=== PATIENT | male | born 1960 | race Caucasian/White ===

== ENCOUNTER → 2017-06-26 | Outpatient (CLI) | payer OTHER ==
--- NOTE | 2017-06-26 13:16 | US ---
EXAMINATION TYPE: US venous doppler duplex LE DATE OF EXAM: 06/26/2017 12:29 PM COMPARISON: US 01/20/2014 CLINICAL HISTORY: M79.605 Pain in left leg M79.604 pain right leg. Difficult exam due to patient body habitus SIDE PERFORMED: Bilateral TECHNIQUE: The lower extremity deep venous system is examined utilizing real time linear array sonog christina with graded compression, doppler sonography and color-flow sonography. VESSELS IMAGED: External Iliac Vein (EIV) Common Femoral Vein Deep Femoral Vein Greater Saphenous Vein * Femoral Vein Popliteal Vein Small Saphenous Vein * Proximal Calf Veins (* superficial vessels) Grayscale, color doppler, spectral doppler imaging performed of the deep veins of the lower extremiti es. There is normal flow, compressibility, vascular waveforms. IMPRESSION: Right Leg: Negative for DVT Left Leg: Negative for DVT
== END | disposition home or self-care (01) ==
LOC: RADUSWWP 11:49
PROVIDERS: ATTEND Family Medicine
DX: M79.605 Pain in left leg (principal); M79.604 Pain in right leg; R22.41 Localized swelling, mass and lump, right lower limb; R22.42 Localized swelling, mass and lump, left lower limb
CPT/HCPCS: 93970

== ENCOUNTER 2018-11-12 15:51 | Emergency (ER) | payer OTHER ==
[2018-11-12 15:57] VITALS: TEMP 98.5
--- NOTE | 2018-11-12 16:31 | ED ---
Wound/Laceration HPI - General Chief Complaint: Wound/Laceration Stated Complaint: Leg infection Time Seen by Provider: 11/12/18 16:02 Source: patient, RN notes reviewed, old records reviewed Mode of arrival: ambulatory Limitations: no limitations - History of Present Illness Initial Comments: Patient's a 58-year-old male presents emergency department today for chief complaint of a wound over his left lower extremity. Patient reports that 3 weeks ago he tripped and hit his lower leg into a metal step. He reports he has a laceration at that time. Patient reports that since that time has been cleaning it with peroxide and putting Neosporin but the area of redness and swelling worsen. He states he went to see his PCP today who sent him here for further evaluation and requested the Patient didn't have a blood clot ruled out. Patient states that he does have some redness around the leg. Patient reports the pain has been more severe with ambulation. Patient reports he was receiving an updated tetanus at his PCPs office today and they did do an x-ray which showed no foreign body. - Related Data Home Medications Medication Instructions Recorded Confirmed Acetaminophen [Tylenol Extra 1,000 mg PO Q6H PRN 11/12/18 11/12/18 Strength] Previous Rx's Medication Instructions Recorded Acetaminophen-Codeine 300-30mg 1 tab PO Q6H PRN 3 Days #12 tablet 11/12/18 [Tylenol w/codeine #3] Cephalexin [Keflex] 500 mg PO Q6HR #40 cap 11/12/18 Sulfamethox-Tmp 800-160Mg [Bactrim 2 tab PO Q12HR #40 tab 11/12/18 DS 800-160 mg] Allergies Allergy/AdvReac Type Severity Reaction Status Date / Time No Known Allergies Allergy Verified 11/12/18 16:14 Review of Systems ROS Statement: Those systems with pertinent positive or pertinent negative responses have been documented in the HPI. ROS Other: All systems not noted in ROS Statement are negative. Past Medical History Past Medical History: Hypertension Additional Past Medical History / Comment(s): OBESITY; "FLUID AROUND HEART" History of Any Multi-Drug Resistant Organisms: None Reported Past Surgical History: Orthopedic Surgery Additional Past Surgical History / Comment(s): lt hand Past Psychological History: No Psychological Hx Reported Smoking Status: Former smoker Past Alcohol Use History: None Reported Past Drug Use History: None Reported General Exam - General Exam Comments Initial Comments: 58-year-old male. Alert and oriented 3. Patient appears in no significant distress. Limitations: no limitations General appearance: alert, in no apparent distress Head exam: Present: atraumatic Eye exam: Present: normal appearance, PERRL, EOMI. Absent: scleral icterus, conjunctival injection, periorbital swelling ENT exam: Present: normal exam, mucous membranes moist Neck exam: Present: normal inspection. Absent: tenderness, meningismus, ly mphadenopathy Respiratory exam: Present: normal lung sounds bilaterally Cardiovascular Exam: Present: regular rate, normal rhythm, normal heart sounds. Absent: systolic murmur, diastolic murmur, rubs, gallop, clicks GI/Abdominal exam: Present: soft, normal bowel sounds. Absent: distended, tenderness, guarding, rebound, rigid Extremities exam: Present: normal inspection, full ROM, normal capillary refill, other (Patient has a puncture wound over the left lower calf with this rounding erythema. Puncture wound measures 2 cm x 1 cm deep. There is evidence of purulent drainage.). Absent: tenderness, pedal edema, joint swelling, calf tenderness Back exam: Present: normal inspection Neurological exam: Present: alert, oriented X3, CN II-XII intact Psychiatric exam: Present: normal affect, normal mood Skin exam: Present: warm, dry, intact, normal color. Absent: rash Course Vital Signs 11/12/18 11/12/18 15:53 18:37 Temperature 98.5 F Pulse Rate 90 61 Respiratory 18 20 Rate Blood Pressure 156/78 134/74 O2 Sat by Pulse 99 99 Oximetry Medical Decision Making - Medical Decision Making 50-year-old male presents to return today after being evaluated by his primary care doctor for a infected laceration over his lower leg. He reports he fell 3 weeks ago, does have an area of laceration and wound measuring 2 cm long by 1 mm deep. This is over the anterior left castillo. No stranding erythema. Patient has no fever this time. Patient started on IV fluids and blood work obtained. No leukocytosis. He has not been on antibiotics as of this time. We'll culture was completed. Ultrasound is negative for DVT and x-ray shows evidence of soft tissue deformity. Patient has no retained foreign body. He was already given updated T dad. At this time Patient will be started on IV, discussed risk and benefit of inpatient treatment versus outpatient. Patient also to outpatient treatment. Discussed that we'll put the Patient on Keflex and Bactrim. Awaiting wound culture. Patient has been advised on wound care instructions. All questions answered return parameters were discussed. - Lab Data Result diagrams: 11/12/18 16:42 11/12/18 16:42 Lab Results 11/12/18 11/12/18 Range/Units 16:42 16:42 WBC 10.5 (3.8-10.6) k/uL RBC 4.53 (4.30-5.90) m/uL Hgb 14.5 (13.0-17.5) gm/dL Hct 43.7 (39.0-53.0) % MCV 96.5 (80.0-100.0) fL MCH 32.0 (25.0-35.0) pg MCHC 33.2 (31.0-37.0) g/dL RDW 14.7 (11.5-15.5) % Plt Count 328 (150-450) k/uL Neutrophils % 74 % Lymphocytes % 16 % Monocytes % 6 % Eosinophils % 2 % Basophils % 1 % Neutrophils # 7.7 (1.3-7.7) k/uL Lymphocytes # 1.7 (1.0-4.8) k/uL Monocytes # 0.6 (0-1.0) k/uL Eosinophils # 0.2 (0-0.7) k/uL Basophils # 0.1 (0-0.2) k/uL Sodium 141 (137-145) mmol/L Potassium 4.5 (3.5-5.1) mmol/L Chloride 106 (98-107) mmol/L Carbon Dioxide 25 (22-30) mmol/L Anion Gap 10 mmol/L BUN 16 (9-20) mg/dL Creatinine 0.86 (0.66-1.25) mg/dL Est GFR (CKD-EPI)AfAm >90 (>60 ml/min/1.73 sqM) Est GFR (CKD-EPI)NonAf >90 (>60 ml/min/1.73 sqM) Glucose 100 H (74-99) mg/dL Calcium 8.9 (8.4-10.2) mg/dL Total Bilirubin 0.4 (0.2-1.3) mg/dL AST 31 (17-59) U/L ALT 38 (21-72) U/L Alkaline Phosphatase 76 (38-126) U/L Total Protein 7.2 (6.3-8.2) g/dL Albumin 4.2 (3.5-5.0) g/dL - Radiology Data Radiology results: report reviewed Tib-fib x-ray: Anterior continuous and subcutaneous defect. Disposition Clinical Impression: Left leg cellulitis, Non-healing wound Disposition: HOME SELF-CARE Condition: Good Instructions (If sedation given, give patient instructions): Wound Infection (ED) Additional Instructions: Patient advised to have follow-up with your primary care physician. Take antibiotics as prescribed. If there is continued redness and swelling within the next 8 hours Patient may need to return for IV antibiotics. Patient should keep the leg up and elevated. No further peroxide on the wound and only dress it with antibiotic ointment. Prescriptions: Sulfamethox-Tmp 800-160Mg [Bactrim DS 800-160 mg] 2 tab PO Q12HR #40 tab Cephalexin [Keflex] 500 mg PO Q6HR #40 cap Acetaminophen-Codeine 300-30mg [Tylenol w/codeine #3] 1 tab PO Q6H PRN 3 Days #12 tablet PRN Reason: Pain Is patient prescribed a controlled substance at d/c from ED?: Yes If prescribed controlled substance>3 days was MAPS reviewed?: Prescribed <3 Days If opioid is for acute pain is fill amount 7 days or less?: Yes If Rx opioid, was Start Talking consent form obtained?: Yes Referrals: Selene Schmitt MD [Primary Care Provider] - 1-2 days Time of Disposition: 18:52
[2018-11-12 16:59] LABS: Basophils # (A) 0.1 k/uL (0-0.2); Basophils % (A) 1 %; Eosinophils # (A) 0.2 k/uL (0-0.7); Eosinophils % (A) 2 %; HCT 43.7 % (39.0-53.0); HGB 14.5 gm/dL (13.0-17.5); Lymphocytes # (A) 1.7 k/uL (1.0-4.8); Lymphocytes % (A) 16 %; MCHC 33.2 g/dL (31.0-37.0); MCV 96.5 fL (80.0-100.0); Monocytes # (A) 0.6 k/uL (0-1.0); Monocytes % (A) 6 %; Neutrophils # (A) 7.7 k/uL (1.3-7.7); Neutrophils % (A) 74 %; Platelet Count 328 k/uL (150-450); RBC 4.53 m/uL (4.30-5.90); RDW 14.7 % (11.5-15.5); WBC 10.5 k/uL (3.8-10.6)
[2018-11-12 17:16] LABS: ALT 38 U/L (21-72); AST 31 U/L (17-59); African American GFR (CKD) >90 (>60 ml/min/1.73 sqM); Albumin 4.2 g/dL (3.5-5.0); Alkaline Phosphatase 76 U/L (38-126); Anion Gap 10 mmol/L; Blood Urea Nitrogen 16 mg/dL (9-20); Calcium 8.9 mg/dL (8.4-10.2); Carbon Dioxide 25 mmol/L (22-30); Chloride 106 mmol/L (98-107); Glucose 100 mg/dL (74-99); Potassium 4.5 mmol/L (3.5-5.1); Sodium 141 mmol/L (137-145); Total Bilirubin 0.4 mg/dL (0.2-1.3); Total Protein 7.2 g/dL (6.3-8.2)
--- NOTE | 2018-11-12 17:22 | XR ---
PROCEDURE: XR tibia fibula LT - 4V DATE AND TIME: 11/12/2018 5:01 PM CLINICAL INDICATION: PHH; puncture wound TECHNIQUE: AP and crosstable lateral views from the knee to the ankle. COMPARISON: 01/20/2014 FINDINGS: Bones and joints are negative. Anterior to the tibia, just inferior to the mid-tibial level, there is a 2 cm scalloped cutaneous/sub cutaneaous defect. Soft tissues are otherwise radiographically unremarkable. IMPRESSION: Anterior cutaneous/subcutaneous defect.
--- NOTE | 2018-11-12 18:21 | US ---
EXAMINATION TYPE: US venous doppler duplex LE LT DATE OF EXAM: 11/12/2018 5:32 PM COMPARISON: NONE CLINICAL HISTORY: Swelling. Edema. SIDE PERFORMED: Left TECHNIQUE: The lower extremity deep venous system is examined utilizing real time linear array sonog christina with graded compression, doppler sonography and color-flow sonography. VESSELS IMAGED: External Iliac Vein (EIV) Common Femoral Vein Deep Femoral Vein Greater Saphenous Vein * Femoral Vein Popliteal Vein Small Saphenous Vein * Proximal Calf Veins (* superficial vessels) Left lower extremity: Negative for DVT IMPRESSION: Grayscale, color doppler, spectral doppler imaging performed of the deep veins of the lo wer extremities. There is normal flow, compressibility, vascular waveforms.
[2018-11-12 18:38] VITALS: BP 134/74; PULSE 61; RESP 20
[2018-11-12] MEDS ORDERED: SULFAMETH-TMP DS STARTER PACK 2 TAB BTL PO STA (18:44)
== END 2018-11-12 19:03 | disposition home or self-care (01) ==
LOC: EC 15:51
DX: L03.116 Cellulitis of left lower limb (principal); S81.832A Puncture wound without foreign body, left lower leg, initial encounter; E66.9 Obesity, unspecified; Z68.41 Body mass index [BMI] 40.0-44.9, adult; Z87.891 Personal history of nicotine dependence; W01.0XXA Fall on same level from slipping, tripping and stumbling without subsequent striking against object, initial encounter
CPT/HCPCS: 36415; 80053; 85025; 87040; 87070; 87205; 73590; 93971; 99284; 96365; J0690

== ENCOUNTER 2018-11-16 10:25 | Observation (INO) | payer OTHER ==
[2018-11-16] MEDS ORDERED: SODIUM CHLORIDE 0.9% 500 ML 500 ML IV STA (11:07)
--- NOTE | 2018-11-16 11:21 | XR ---
EXAMINATION TYPE: XR tibia fibula LT , 4 VIEWS DATE OF EXAM ORDERED: 11/16/2018 HISTORY: wound mid tib . COMPARISON: Previous study dated 11/12/2018. FINDINGS: No fracture, dislocation or other acute osseous lesion is seen. Anterior cutaneous defect seen previously is less clearly seen on this examination. IMPRESSION: NO ACUTE OSSEOUS LESION.
[2018-11-16 11:47] LABS: Basophils # (A) 0.1 k/uL (0-0.2); Basophils % (A) 1 %; Eosinophils # (A) 0.2 k/uL (0-0.7); Eosinophils % (A) 2 %; HGB 14.6 gm/dL (13.0-17.5); Lymphocytes # (A) 1.5 k/uL (1.0-4.8); Lymphocytes % (A) 19 %; MCH 32.2 pg (25.0-35.0); MCHC 33.1 g/dL (31.0-37.0); MCV 97.4 fL (80.0-100.0); Mean Platelet Volume 8.4; Monocytes # (A) 0.5 k/uL (0-1.0); Monocytes % (A) 6 %; Neutrophils # (A) 5.7 k/uL (1.3-7.7); Neutrophils % (A) 71 %; Platelet Count 293 k/uL (150-450); RBC 4.51 m/uL (4.30-5.90); RDW 14.8 % (11.5-15.5)
[2018-11-16 11:59] LABS: ALT 39 U/L (21-72); AST 25 U/L (17-59); African American GFR (CKD) >90 (>60 ml/min/1.73 sqM); Albumin 3.9 g/dL (3.5-5.0); Alkaline Phosphatase 65 U/L (38-126); Anion Gap 9 mmol/L; Blood Urea Nitrogen 14 mg/dL (9-20); Calcium 8.8 mg/dL (8.4-10.2); Carbon Dioxide 23 mmol/L (22-30); Chloride 106 mmol/L (98-107); Glucose 119 mg/dL (74-99); Potassium 4.7 mmol/L (3.5-5.1); Sodium 138 mmol/L (137-145); Total Bilirubin 0.5 mg/dL (0.2-1.3); Total Protein 6.7 g/dL (6.3-8.2)
--- NOTE | 2018-11-16 12:17 | ED ---
General Adult HPI - General Source: patient, RN notes reviewed Mode of arrival: ambulatory Limitations: no limitations <Guru Crawley - Last Filed: 11/16/18 12:42> <Diogo Nuno - Last Filed: 11/16/18 13:07> - General Chief complaint: Wound/Laceration Stated complaint: recheck - leg wound Time Seen by Provider: 11/16/18 10:34 - History of Present Illness Initial comments: 58-year-old male with a past medical history of hyperlipidemia, hypertension presents to the emergency department for a chief complaint of possible infection and wound of the left lower extremity. Patient states that 3 weeks ago he was walking up the stairs of the motor home when he fell and the glaciologist for stair hit his mid left lower leg. States he was seen here 4 days ago he has it was not healing and had some redness around the area and was given Keflex and Bactrim. States he was told to return if the redness did not improve. Patient states the redness has been consistent since the time of the injury. Denies fevers or chills. States he wants to make sure he is not getting an infection.Patient has no other complaints at this time including shortness of breath, chest pain, abdominal pain, nausea or vomiting, headache, or visual changes. (Guru Crawley) - Related Data Home Medications Medication Instructions Recorded Confirmed Acetaminophen [Tylenol Extra 1,000 mg PO Q6H PRN 11/12/18 11/16/18 Strength] Previous Rx's Medication Instructions Recorded Acetaminophen-Codeine 300-30mg 1 tab PO Q6H PRN 3 Days #12 tablet 11/12/18 [Tylenol w/codeine #3] Cephalexin [Keflex] 500 mg PO Q6HR #40 cap 11/12/18 Sulfamethox-Tmp 800-160Mg [Bactrim 2 tab PO Q12HR #40 tab 11/12/18 DS 800-160 mg] Allergies Allergy/AdvReac Type Severity Reaction Status Date / Time No Known Allergies Allergy Verified 11/16/18 13:02 Review of Systems ROS Other: All systems not noted in ROS Statement are negative. <Guru Crawley - Last Filed: 11/16/18 12:42> ROS Other: All systems not noted in ROS Statement are negative. <Diogo Nuno - Last Filed: 11/16/18 13:07> ROS Statement: Those systems with pertinent positive or pertinent negative responses have been documented in the HPI. Past Medical History Past Medical History: Hyperlipidemia, Hypertension Additional Past Medical History / Comment(s): OBESITY; "FLUID AROUND HEART" History of Any Multi-Drug Resistant Organisms: None Reported Past Surgical History: Orthopedic Surgery Additional Past Surgical History / Comment(s): lt hand Past Psychological History: No Psychological Hx Reported Smoking Status: Current every day smoker Past Alcohol Use History: Occasional Past Drug Use History: Marijuana <Guru Crawley P - Last Filed: 11/16/18 12:42> General Exam Limitations: no limitations General appearance: alert, in no apparent distress Head exam: Present: atraumatic, normocephalic, normal inspection Eye exam: Present: normal appearance, PERRL, EOMI. Absent: scleral icterus, conjunctival injection, periorbital swelling ENT exam: Present: normal exam, mucous membranes moist Neck exam: Present: normal inspection. Absent: tenderness, meningismus, lymphadenopathy Respiratory exam: Present: normal lung sounds bilaterally. Absent: respiratory distress, wheezes, rales, rhonchi, stridor Cardiovascular Exam: Present: regular rate, normal rhythm, normal heart sounds. Absent: systolic murmur, diastolic murmur, rubs, gallop, clicks Extremities exam: Present: full ROM (Of left lower extremity.), normal capillary refill (caprefill < 2seconds dp pulse 2+), other (There is a 2 cm x 1 cm chronic wound noted in the mid tib-fib with mild surrounding erythema about 6 cm x 6 cm). Absent: tenderness, pedal edema, joint swelling, calf tenderness Neurological exam: Present: alert <Guru Crawley P - Last Filed: 11/16/18 12:42> Course Vital Signs 11/16/18 10:28 Temperature 97.7 F Pulse Rate 74 Respiratory 18 Rate Blood Pressure 161/109 O2 Sat by Pulse 97 Oximetry Medical Decision Making - Lab Data Result diagrams: 11/16/18 11:30 11/16/18 11:30 <Guru Crawley - Last Filed: 11/16/18 12:42> - Lab Data Result diagrams: 11/16/18 11:30 11/16/18 11:30 <Diogo Nuno - Last Filed: 11/16/18 13:07> - Medical Decision Making 58-year-old male with a past medical history of hyperlipidemia, hypertension presents to the emergency department for a chief complaint of possible infection and wound of the left lower extremity. States that 3 weeks ago he hit his leg and obtained a wound. States that he has some redness around the area that seems a darkening. Patient was given Keflex and Bactrim and since then has had no change in the redness, not improving. On exam he does have what appears to be a likely chronic developing wound with some surrounding erythema. CBC CMP unremarkable. X-ray shows no acute osseous lesion. Cutaneous defect seen. Dr. Nuno also evaluated patient. At this time patient will be admitted for IV antibiotics. Aware that they will likely need wound care center in future. (Guru Crawley) Patient reevaluated by myself, Dr. Nuno. Patient resting comfortably in bed. Patient did have injury left castillo 3 weeks ago. Patient has had open wound since that time. Patient has had erythema for the past week or so with discomfort. No improvement with 4 days of antibiotics. Case was discussed with Dr. Kidd, who will admit covering for Dr. Guo. (Diogo Nuno) - Lab Data Lab Results 11/16/18 11/16/18 11/16/18 Range/Units 11:30 11:30 11:30 WBC 8.0 (3.8-10.6) k/uL RBC 4.51 (4.30-5.90) m/uL Hgb 14.6 (13.0-17.5) gm/dL Hct 44.0 (39.0-53.0) % MCV 97.4 (80.0-100.0) fL MCH 32.2 (25.0-35.0) pg MCHC 33.1 (31.0-37.0) g/dL RDW 14.8 (11.5-15.5) % Plt Count 293 (150-450) k/uL Neutrophils % 71 % Lymphocytes % 19 % Monocytes % 6 % Eosinophils % 2 % Basophils % 1 % Neutrophils # 5.7 (1.3-7.7) k/uL Lymphocytes # 1.5 (1.0-4.8) k/uL Monocytes # 0.5 (0-1.0) k/uL Eosinophils # 0.2 (0-0.7) k/uL Basophils # 0.1 (0-0.2) k/uL Sodium 138 (137-145) mmol/L Potassium 4.7 (3.5-5.1) mmol/L Chloride 106 (98-107) mmol/L Carbon Dioxide 23 (22-30) mmol/L Anion Gap 9 mmol/L BUN 14 (9-20) mg/dL Creatinine 0.92 (0.66-1.25) mg/dL Est GFR (CKD-EPI)AfAm >90 (>60 ml/min/1.73 sqM) Est GFR (CKD-EPI)NonAf >90 (>60 ml/min/1.73 sqM) Glucose 119 H (74-99) mg/dL Plasma Lactic Acid [place] 1.3 (0.7-2.0) mmol/L Calcium 8.8 (8.4-10.2) mg/dL Total Bilirubin 0.5 (0.2-1.3) mg/dL AST 25 (17-59) U/L ALT 39 (21-72) U/L Alkaline Phosphatase 65 (38-126) U/L Total Protein 6.7 (6.3-8.2) g/dL Albumin 3.9 (3.5-5.0) g/dL Disposition Is patient prescribed a controlled substance at d/c from ED?: No Time of Disposition: 12:43 <Guru Crawley - Last Filed: 11/16/18 12:42> <Diogo Nuno - Last Filed: 11/16/18 13:07> Clinical Impression: Laceration, Left leg cellulitis, Non-healing wound Disposition: ADMITTED IP TO THIS HOSP Condition: Fair Referrals: Selene Schmitt MD [Primary Care Provider] - 1-2 days
[2018-11-16] MEDS ORDERED: KETOROLAC 30 MG/ML 1 ML VIAL IVP PRN (12:43)
[2018-11-16] MEDS ORDERED: NALOXONE 0.4 MG/ML 1 ML VIAL IV PRN (12:43)
[2018-11-16] MEDS ORDERED: VANCOMYCIN IV PER PHARMACY 1 EACH MISC MISCELLANE PRN (12:45)
[2018-11-16] MEDS ORDERED: VANCOMYCIN 2,500 MG in SODIUM CHLORIDE 0.9% 500 ML 500 ML IVPB ONE (13:30)
--- NOTE | 2018-11-16 13:50 | P.HPIM ---
History of Present Illness This is a pleasant 58 years old male with past medical history of hypertension and hyperlipidemia. He presents because of left leg wound 3 weeks duration when he slipped going upstairs and the Rainy whether. No syncope or dizziness. No chest pain or dyspnea. Since then he has a small longitudinal opening wound about an inch or less in diameter. He came to the emergency room to 3 days ago where is was prescribed Bactrim and Keflex and told to stop them and to come back to emergency room. As per patient and at bedside size is not getting better and there is an area of erythema about 2-3 inches in diameter rounded wi th mild swelling and tenderness. There is some clear scant yellow discharge at the wound base which looks deep. Vitals are stable. Labs including CBC, BMP and liver enzymes were unremarkable. X-ray of the left tibia and fibula showing no acute fracture or osseous lesion as per radiologist. In the emergency room patient was started on ceftriaxone and vancomycin Review of Systems CONSTITUTIONAL: No fever, no malaise, no fatigue. HEENT: No recent visual problems or hearing problems. Denied any sore throat. CARDIOVASCULAR: No orthopnea, PND, no palpitations, no syncope. PULMONARY: No shortness of breath, no cough, no hemoptysis. GASTROINTESTINAL: No diarrhea, no nausea, no vomiting, no abdominal pain. Normoactive bowel sounds. NEUROLOGICAL: No headaches, no weakness, no numbness. HEMATOLOGICAL: Denies any bleeding or petechiae. GENITOURINARY: Denies any burning micturition, frequency, or urgency. MUSCULOSKELETAL/RHEUMATOLOGICAL: Denies any joint pain, swelling, or any muscle pain. ENDOCRINE: Denies any polyuria or polydipsia. Past Medical History Past Medical History: Hyperlipidemia, Hypertension Additional Past Medical History / Comment(s): OBESITY; "FLUID AROUND HEART" History of Any Multi-Drug Resistant Organisms: None Reported Past Surgical History: Orthopedic Surgery Additional Past Surgical History / Comment(s): lt hand Past Psychological History: No Psychological Hx Reported Smoking Status: Current every day smoker Past Alcohol Use History: Occasional Past Drug Use History: Marijuana Medications and Allergies Home Medications Medication Instructions Recorded Confirmed Type Acetaminophen [Tylenol Extra 1,000 mg PO Q6H PRN 11/12/18 11/16/18 History Strength] Acetaminophen-Codeine 300-30mg 1 tab PO Q6H PRN 3 Days #12 tablet 11/12/18 11/16/18 Rx [Tylenol w/codeine #3] Cephalexin [Keflex] 500 mg PO Q6HR #40 cap 11/12/18 11/16/18 Rx Sulfamethox-Tmp 800-160Mg [Bactrim 2 tab PO Q12HR #40 tab 11/12/18 11/16/18 Rx DS 800-160 mg] Allergies Allergy/AdvReac Type Severity Reaction Status Date / Time No Known Allergies Allergy Verified 11/16/18 13:02 Physical Exam Vitals: Vital Signs Temp Pulse Resp BP Pulse Ox 11/16/18 13:00 68 18 145/94 99 11/16/18 10:28 97.7 F 74 18 161/109 97 Intake and Output 11/15/18 11/16/18 11/16/18 22:59 06:59 14:59 Other: Weight 176.901 kg GENERAL: The patient is alert and oriented x3, not in any acute distress. Well developed, well nourished. HEENT: Pupils are round and equally reacting to light. EOMI. No scleral icterus. No conjunctival pallor. Normocephalic, atraumatic. No pharyngeal erythema. No thyromegaly. CARDIOVASCULAR: S1 and S2 present. No murmurs, rubs, or gallops. PULMONARY: Chest is clear to auscultation, no wheezing or crackles. ABDOMEN: Soft, nontender, nondistended, normoactive bowel sounds. No palpable organomegaly. MUSCULOSKELETAL: No joint swelling or deformity. -EXTREMITIES: No cyanosis, clubbing, or pedal edema. 1 inch longitudinal wound in his left leg with surrounding erythema and cellulitis NEUROLOGICAL: Gross neurological examination did not reveal any focal deficits. SKIN: No rashes. Results CBC & Chem 7: 11/16/18 11:30 11/16/18 11:30 Labs: Abnormal Lab Results - Last 24 Hours (Table) 11/16/18 Range/Units 11:30 Glucose 119 H (74-99) mg/dL Assessment and Plan Assessment: Left leg wound and cellulitis, failed outpatient therapy Obesity Hypertension Hyperlipidemia Plan: This is a pleasant 58 years old male who presents with left leg wounds and cellulitis. Continue with antibiotics as per ID team which, to be consulted. Follow-up culture results. We'll check Doppler of the lower extremity to rule out DVT. Continue with IV hydration Labs and medication were reviewed.. Continue same treatment. Continue with symptomatic treatment. Resume home medication. Monitor lytes and vitals. DVT and GI prophylaxis. Further recommendations of the clinical course of the patient DVT prophylaxis: Subcutaneous heparin GI Prophylaxis: Pepcid PT/OT: Pending
[2018-11-16] MEDS: SODIUM CHLORIDE 0.9% 1,000 ML IV SCH (14:48)
[2018-11-16] MEDS: FAMOTIDINE 20 MG/2 ML VIAL IV SCH (20:32)
[2018-11-16] MEDS: HEPARIN SODIUM,PORCINE 5,000 UNIT/ML 1 ML VIAL SQ SCH ×2 (20:32→20:37)
[2018-11-16] MEDS: TEMAZEPAM 15 MG CAP PO PRN (22:11)
--- NOTE | 2018-11-16 22:24 | US ---
EXAMINATION TYPE: US venous doppler duplex LE LT DATE OF EXAM: 11/16/2018 3:48 PM COMPARISON: NONE CLINICAL HISTORY: 58-year-old male Rule out DVT. Left leg pain and edema open wound on calf. SIDE PERFORMED: Left TECHNIQUE: The lower extremity deep venous system is examined utilizing real time linear array sonog christina with graded compression, doppler sonography and color-flow sonography. FINDINGS: VESSELS IMAGED: External Iliac Vein (EIV) Common Femoral Vein Deep Femoral Vein Greater Saphenous Vein * Femoral Vein Popliteal Vein Small Saphenous Vein * Proximal Calf Veins (* superficial vessels) Left Leg: Negative for DVT IMPRESSION: No evidence for DVT within the left lower extremity imaged from the groin to the upper calf.
[2018-11-16] MEDS: VANCOMYCIN 2,500 MG in SODIUM CHLORIDE 0.9% 500 ML 500 ML IVPB SCH (23:48)
[2018-11-17] MEDS: SODIUM CHLORIDE 0.9% 1,000 ML IV SCH ×2 (04:52→17:19)
[2018-11-17 05:57] VITALS: RESP 18
[2018-11-17 08:11] LABS: African American GFR (CKD) >90 (>60 ml/min/1.73 sqM); Anion Gap 8 mmol/L; Blood Urea Nitrogen 12 mg/dL (9-20); Calcium 8.8 mg/dL (8.4-10.2); Carbon Dioxide 24 mmol/L (22-30); Chloride 108 mmol/L (98-107); Glucose 111 mg/dL (74-99); Sodium 140 mmol/L (137-145)
--- NOTE | 2018-11-17 08:14 | P.PN ---
Subjective This is a pleasant 58 years old male with past medical history of hypertension and hyperlipidemia. He presents because of left leg wound 3 weeks duration when he slipped going upstairs and the [place] whether. No syncope or dizziness. No chest pain or dyspnea. Since then he has a small longitudinal opening wound about an inch or less in diameter. He came to the emergency room to 3 days ago where is was prescribed Bactrim and Keflex and told to stop them and to come back to emergency room. As per patient and at bedside size is not getting better and there is an area of erythema about 2-3 inches in diameter rounded with mild swelling and tenderness. There is some clear scant yellow discharge at the wound base which looks deep. Vitals are stable. Labs including CBC, BMP and liver enzymes were unremarkable. X-ray of the left tibia and fibula showing no acute fracture or osseous lesion as per radiologist. In the emergency room patient was started on ceftriaxone and vancomycin 11/17/2018 Patient feels better, no pain and his leg cellulitis, the area looks slightly regressed in place right compared to yesterday however is still early to decide for sure. No other new complaints. Vitals are stable. Labs pending. Wound culture were sent and results are pending. We have to monitor creatinine level since patient is currently on vancomycin pharmacy to dose. Follow-up physical therapy evaluation Review of systems CONSTITUTIONAL: No fever, no malaise, no fatigue. HEENT: No recent visual problems or hearing problems. Denied any sore throat. CARDIOVASCULAR: No orthopnea, PND, no palpitations, no syncope. PULMONARY: No shortness of breath, no cough, no hemoptysis. GASTROINTESTINAL: No diarrhea, no nausea, no vomiting, no abdominal pain. Normoactive bowel sounds. NEUROLOGICAL: No headaches, no weakness, no numbness. HEMATOLOGICAL: Denies any bleeding or petechiae. GENITOURINARY: Denies any burning micturition, frequency, or urgency. MUSCULOSKELETAL/RHEUMATOLOGICAL: Denies any joint pain, swelling, or any muscle pain. ENDOCRINE: Denies any polyuria or polydipsia. Active Medications Generic Name Dose Route Start Last Admin Trade Name Freq PRN Reason Stop Dose Admin Famotidine 20 mg 11/16/18 21:00 11/16/18 20:32 Pepcid IV 20 mg Q12HR HOLLEY Administration Heparin Sodium (Porcine) 5,000 unit 11/16/18 21:00 11/16/18 20:37 Heparin SQ Not Given Q12HR HOLLEY Sodium Chloride 1,000 mls @ 75 mls/hr 11/16/18 12:45 11/17/18 04:52 Saline 0.9% IV 75 mls/hr .[id number] HOLLEY Administration Ceftriaxone Sodium 1 gm/ 50 mls @ 100 mls/hr 11/17/18 09:00 Sodium Chloride IVPB DAILY HOLLEY Vancomycin HCl 2,500 mg/ 500 mls @ 167 mls/hr 11/17/18 00:00 11/16/18 23:48 Sodium Chloride IVPB 167 mls/hr Q12H HOLLEY Administration Miscellaneous Information 1 each 11/16/18 12:45 Pharmacy To Dose Iv Vancomycin MISCELLANE DIRECTED PRN Per Protocol Naloxone HCl 0.2 mg 11/16/18 12:43 Narcan IV Q2M PRN Opioid Reversal Temazepam 15 mg 11/16/18 14:53 11/16/18 22:11 Restoril PO 15 mg HS PRN Administration Insomnia Tramadol HCl 50 mg 11/16/18 13:49 Ultram PO QID PRN Pain Objective - Vital Signs Vital signs: Vital Signs Temp 97.7 F 11/17/18 05:48 Pulse 62 11/17/18 05:48 Resp 18 11/17/18 05:48 BP 153/69 11/17/18 05:48 Pulse Ox 97 11/17/18 05:48 Intake & Output 11/16/18 11/17/18 11/17/18 18:59 06:59 18:59 Intake Total 400 Balance 400 Weight 176.901 kg Intake: Oral 400 Other: Voiding Method Toilet # Voids 1 - Exam GENERAL: The patient is alert and oriented x3, not in any acute distress. Well developed, well nourished. HEENT: Pupils are round and equally reacting to light. EOMI. No scleral icterus. No conjunctival pallor. Normocephalic, atraumatic. No pharyngeal erythema. No thyromegaly. CARDIOVASCULAR: S1 and S2 present. No murmurs, rubs, or gallops. PULMONARY: Chest is clear to auscultation, no wheezing or crackles. ABDOMEN: Soft, nontender, nondistended, normoactive bowel sounds. No palpable organomegaly. MUSCULOSKELETAL: No joint swelling or deformity. -EXTREMITIES: No cyanosis, clubbing, or pedal edema. 1 inch longitudinal wound in his left leg with surrounding erythema and cellulitis NEUROLOGICAL: Gross neurological examination did not reveal any focal deficits. SKIN: No rashes. - Labs CBC & Chem 7: 11/16/18 11:30 11/17/18 07:13 Labs: Abnormal Lab Results - Last 24 Hours (Table) 11/16/18 11/17/18 Range/Units 11:30 07:13 Chloride 108 H (98-107) mmol/L Glucose 119 H 111 H (74-99) mg/dL Microbiology - Last 24 Hours (Table) 11/16/18 14:30 Anaerobic Culture - Preliminary Leg - Left 11/16/18 14:30 Wound Culture - Preliminary Leg - Left Assessment and Plan Assessment: Left leg wound and cellulitis, failed outpatient therapy Obesity Hypertension Hyperlipidemia Plan: This is a pleasant 58 years old male who presents with left leg wounds and cellulitis. Continue with antibiotics as per ID team which, to be consulted. Follow-up culture results. We'll check Doppler of the lower extremity to rule out DVT. Continue with IV hydration Labs and medication were reviewed.. Continue same treatment. Continue with symptomatic treatment. Resume home medication. Monitor lytes and vitals. DVT and GI prophylaxis. Further recommendations of the clinical course of the patient DVT prophylaxis: Subcutaneous heparin GI Prophylaxis: Pepcid PT/OT: Pending
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
[2018-11-17] MEDS: FAMOTIDINE 20 MG/2 ML VIAL IV SCH (09:56)
[2018-11-17] MEDS: HEPARIN SODIUM,PORCINE 5,000 UNIT/ML 1 ML VIAL SQ SCH ×2 (09:56→19:34)
[2018-11-17 10:15] LABS: HCT 43.7 % (39.0-53.0); HGB 14.2 gm/dL (13.0-17.5); MCH 32.4 pg (25.0-35.0); MCHC 32.5 g/dL (31.0-37.0); MCV 99.8 fL (80.0-100.0); Macrocytosis Slight; Platelet Count 285 k/uL (150-450); RBC 4.38 m/uL (4.30-5.90); RDW 14.7 % (11.5-15.5); WBC 7.6 k/uL (3.8-10.6)
[2018-11-17] MEDS: traMADol 50 MG TAB PO PRN ×2 (13:16→19:34)
[2018-11-17] MEDS: VANCOMYCIN 2,500 MG in SODIUM CHLORIDE 0.9% 500 ML 500 ML IVPB SCH (13:17)
[2018-11-17] MEDS: TEMAZEPAM 15 MG CAP PO PRN (20:09)
[2018-11-17] MEDS: FAMOTIDINE 20 MG TAB PO SCH (20:09)
--- NOTE | 2018-11-17 23:46 | PN ---
PROGRESS NOTE DATE OF SERVICE: 11/17/2018. REASON FOR FOLLOWUP: Left leg wound with secondary cellulitis. INTERVAL HISTORY: The patient is currently afebrile. The patient is breathing comfortably. Denies having any chest pain. No cough. No abdominal pain. Overall pain and swelling to the left leg has improved. PHYSICAL EXAMINATION: Blood pressure 131/72 with a pulse of 72, temperature 98.1. He is 94% on room air. General description is a middle aged male up in the bed in no distress. Respiratory system: Unlabored breathing. Clear to auscultation anteriorly. Heart S1, S2. Regular rate and rhythm. ABDOMEN: Soft. No tenderness. Left leg swelling and redness has improved. No drainage. LABS: BUN of 12, creatinine 0.93. Cultures currently showing beta hemolytic Strep group C. DIAGNOSTIC IMPRESSION AND PLAN: Patient with left leg wound with secondary cellulitis, culture positive for beta- hemolytic Strep C. Antibiotic will be adjusted to cefazolin 2 g q.8h. Discontinue the vancomycin. Local wound care with Aquacel silver. Continue supportive care. MMODL / IJN: [id number] /
[2018-11-18] MEDS: SODIUM CHLORIDE 0.9% 1,000 ML IV SCH (05:26)
[2018-11-18 07:09] VITALS: BP 137/64; PULSE 63; TEMP 97.5
[2018-11-18] MEDS: FAMOTIDINE 20 MG TAB PO SCH (07:21)
[2018-11-18] MEDS: HEPARIN SODIUM,PORCINE 5,000 UNIT/ML 1 ML VIAL SQ SCH (07:38)
[2018-11-18 08:40] LABS: African American GFR (CKD) >90 (>60 ml/min/1.73 sqM); Anion Gap 7 mmol/L; Blood Urea Nitrogen 13 mg/dL (9-20); Calcium 8.8 mg/dL (8.4-10.2); Carbon Dioxide 27 mmol/L (22-30); Chloride 106 mmol/L (98-107); Glucose 108 mg/dL (74-99); Potassium 4.9 mmol/L (3.5-5.1); Sodium 140 mmol/L (137-145)
--- NOTE | 2018-11-18 12:14 | PN ---
PROGRESS NOTE DATE OF SERVICE: 11/18/2018 REASON FOR FOLLOWUP: Left leg wound with secondary cellulitis. INTERVAL HISTORY: The patient is currently afebrile. Has been breathing comfortably. Denies having any chest pain or any cough. No nausea, no vomiting. No pain to the left leg wound area. PHYSICAL EXAMINATION: On examination, blood pressure 137/64 with a pulse of 63, temperature 97.5. He is 95% on room air. General description is a middle-aged male lying in bed in no distress. RESPIRATORY SYSTEM: Unlabored breathing, clear to auscultation anteriorly. HEART: S1, S2. Regular rate and rhythm. ABDOMEN: Soft, no tenderness. Left leg swelling and redness is improved and there is no drainage. LABS: Creatinine 0.90. Wound culture finalized with beta hemolytic strep group C. DIAGNOSTIC IMPRESSION AND PLAN: Patient with left leg wound traumatic with secondary cellulitis. Culture positive with for group C strep. Plan at this time is to finish therapy with oral Keflex 500 mg q.6 hours for 10 days. Local wound care with Aquacel silver dressing. Followup in the office in one week. MMODL / IJN: [id number] /
--- NOTE | 2018-11-18 21:20 | P.DS ---
Providers Date of admission: 11/16/18 13:06 Attending physician: Morgan Hernandez MD Consults: 11/16/18 13:48 Consult Physician Urgent Consulting Provider: Marzena Lacey Consult Reason/Comments: Left leg wound and cellulitis Do you want consulting provider notified?: Yes Primary care physician: [facility] Course: Diagnosis: Left leg wound and cellulitis, failed outpatient therapy. Culture is growing beta-hemolytic streptococcus group C Obesity Hypertension Hyperlipidemia Hospital course: This is a pleasant 58 years old male with past medical history of hypertension and hyperlipidemia. He presents because of left leg wound 3 weeks duration when he slipped going upstairs in the [place] whether. No syncope or dizziness. No chest pain or dyspnea. Since then he has a small longitudinal opening wound about an inch or less in diameter. He came to the emergency room to 3 days ago where is was prescribed Bactrim and Keflex and told to stop them and to come back to emergency room. As per patient and at bedside size is not getting better and there is an area of erythema about 2-3 inches in diameter rounded with mild swelling and tenderness. There is some clear scant yellow discharge at the wound base which looks deep.Culture is growing beta-hemolytic streptococcus group C. Infectious disease team evaluated the patient and recommended parenteral antibiotics. Patient showed interval improvement and the area of cellulitis is regressing significantly. Significantly less pain and swelling and redness. Infectious disease team cleared the patient for discharge. Patient felt is ready to go home. Patient will be discharged on antibiotics as per ID team recommendation, see discharge instructions. Problems and management plan were discussed with the patient and he verbalized understanding and acceptance Patient was found stable and can be discharged home however he needs follow-up as an outpatient. Patient was instructed to follow up with PCP and ID team within one week and he agrees. pt agrees with appointment made for him with ID team and its timing and states he will follow up Gen: patient is a AAOx3, no distress CVS: S1-S2, RRR, no murmur Lungs: B/L CTA, no wheezing Abdomen: soft, no distention, no tenderness, positive bowel sounds Extremity: no leg edema or induration. 1 inch longitudinal wound in his left leg with surrounding less erythema and cellulitis, significantly improved Time spent more than 35 minutes Patient Condition at Discharge: Fair Plan - Discharge Summary Discharge Rx Participant: No New Discharge Prescriptions: New Cephalexin [Keflex] 500 mg PO Q6HR 10 Days #40 cap Continue Acetaminophen [Tylenol Extra Strength] 1,000 mg PO Q6H PRN PRN Reason: Pain Acetaminophen-Codeine 300-30mg [Tylenol w/codeine #3] 1 tab PO Q6H PRN 3 Days #12 tablet PRN Reason: Pain Discontinued Sulfamethox-Tmp 800-160Mg [Bactrim DS 800-160 mg] 2 tab PO Q12HR #40 tab Cephalexin [Keflex] 500 mg PO Q6HR #40 cap Discharge Medication List Acetaminophen [Tylenol Extra Strength] 1,000 mg PO Q6H PRN 11/12/18 [History] Acetaminophen-Codeine 300-30mg [Tylenol w/codeine #3] 1 tab PO Q6H PRN 3 Days #12 tablet 11/12/18 [Rx] Cephalexin [Keflex] 500 mg PO Q6HR 10 Days #40 cap 11/18/18 [Rx] Follow up Appointment(s)/Referral(s): Selene Schmitt MD [Primary Care Provider] - 1-2 days (Please call office to make follow up appointment) Marzena Lacey MD [STAFF PHYSICIAN] - 11/25/18 9:45 am Patient Instructions/Handouts: Cellulitis (DC) Activity/Diet/Wound Care/Special Instructions: regular diet activity is limited till you see you doctor aquacel rope to leg wound every 48 hours. wrap with kirlex Discharge Disposition: HOME SELF-CARE
[2018-11-18] MEDS ORDERED: VANCOMYCIN TROUGH DUE 1 EACH MISC MISCELLANE ONE (23:00)
== END 2018-11-18 11:27 | disposition home or self-care (01) ==
LOC: EC 10:25 → 4MS4W 13:06
PROVIDERS: ADMIT Internal Medicine; ATTEND Internal Medicine
DX: L03.116 Cellulitis of left lower limb (principal); S81.812A Laceration without foreign body, left lower leg, initial encounter; E66.9 Obesity, unspecified; Z68.42 Body mass index [BMI] 45.0-49.9, adult; B95.4 Other streptococcus as the cause of diseases classified elsewhere; I10 Essential (primary) hypertension; E78.5 Hyperlipidemia, unspecified; F17.200 Nicotine dependence, unspecified, uncomplicated; Z91.81 History of falling
CPT/HCPCS: 96376; 96361 ×3; 96365 ×2; 96366 ×3; 96375; 96367; 99284; 36415; 97161; 97165; 80053; 80048 ×2; 83605; 85025; 85027; 87040; 87070; 87205; 87075; 73590; 93971; G0378 ×3; J3370 ×2; J0690 ×2; J0696 ×2

== ENCOUNTER → 2019-01-06 | Outpatient (CLI) | payer OTHER ==
--- NOTE | 2019-01-06 15:19 | XR ---
EXAMINATION TYPE: XR Hip Complete RT DATE OF EXAM: 01/06/2019 CLINICAL HISTORY: Low back pain and right hip pain TECHNIQUE: AP and frogleg views of the right hip are obtained. COMPARISON: None. FINDINGS: There is no acute fracture/dislocation evident in the right hip. The joint space in the r ight hip appears within normal limits. The overlying soft tissue appears unremarkable. IMPRESSION: There is no acute fracture or dislocation in the right hip.
--- NOTE | 2019-01-06 15:23 | XR ---
EXAMINATION TYPE: XR lumbosacral spine min 4V DATE OF EXAM: 01/06/2019 CLINICAL HISTORY: Low back pain TECHNIQUE: Frontal, lateral, and oblique images of the lumbar spine are obtained. COMPARISON: 01/20/2014 FINDINGS: There are 5 lumbar type vertebral bodies identified. Very minimal retrolisthesis is seen of L4 on L5 1 mm and L3 on L4 of 1 mm. Subtle 1 mm anterolisthesis of L5 on S1. Findings are slightly more pronounced than on the prior of 2013. Multilevel moderate degenerative disc disease of the lumb ar spine is seen with multilevel facet arthropathy, small anterior osteophytes, intervertebral disc s pace narrowing and endplate sclerosis. No vertebral body height loss. Straightening of usual lumbar l ordosis is present. Oblique images demonstrate no evidence of pars interarticularis defect. Very mild levoscoliosis of the lumbar spine at the thoracolumbar junction. IMPRESSION: 1. No acute fracture is seen in the lumbar spine. 2. Multilevel very mild malalignment is likely on a degenerative basis. 3. Mild levoscoliosis, straightening of the usual lumbar lordosis that may relate to muscular sprain/ spasm or patient positioning and moderate multilevel degenerative disc disease.
== END | disposition home or self-care (01) ==
LOC: RADXRMAIN 13:17
PROVIDERS: ATTEND Family Medicine
DX: M41.86 Other forms of scoliosis, lumbar region (principal); R90.89 Other abnormal findings on diagnostic imaging of central nervous system; M25.551 Pain in right hip
CPT/HCPCS: 72110; 73502

== ENCOUNTER → 2019-04-23 | Outpatient (CLI) | payer OTHER | END | disposition home or self-care (01) | LOC: RADMRIMAIN 06:59 | PROVIDERS: ATTEND Family Medicine | DX: Z53.9 Procedure and treatment not carried out, unspecified reason (principal) ==

== ENCOUNTER → 2020-08-20 | Outpatient (CLI) | payer OTHER ==
--- NOTE | 2020-08-21 06:53 | CT ---
EXAMINATION TYPE: CT abdomen pelvis wo con DATE OF EXAM: 08/20/2020 HISTORY: Epigastric abdominal pain for a few months. CT DLP: 6.1 mGycm. Automated Exposure Control for Dose Reduction was Utilized. TECHNIQUE: CT scan of the abdomen and pelvis is performed with oral but without IV contrast. COMPARISON: NONE FINDINGS: Within the limitations of a non-contrast study, the following observations are made. Exam slightly suboptimal due to patient's large body habitus. LUNG BASES: Some calcifications at level of the aortic root. Mild bibasilar linear scarring and/or at electasis.. LIVER/GB: No significant abnormality is appreciated. PANCREAS: No significant abnormality is seen. SPLEEN: No significant abnormality is seen. ADRENALS: No significant abnormality is seen. KIDNEYS: No renal stones or hydronephrosis seen bilaterally. Some cortical thinning bilaterally. Nons pecific subcentimeter partially exophytic low-density lesions posteriorly over lower pole left kidney presumed benign. BOWEL: Oral contrast only reaches jejunal loops in the left abdomen. Suspicious small or large bowel dilatation. A few scattered colonic diverticula. No CT evidence for acute diverticulitis. Normal-appe aring appendix in the right lower quadrant. GENITAL ORGANS: No gross abnormality seen. LYMPH NODES: No greater than 1cm abdominal or pelvic lymph nodes are appreciated. OSSEOUS STRUCTURES: Multilevel vacuum disc phenomenon with mild to moderate disc space narrowing 2-L3 through the L4-L5 levels. Facet arthropathy lower lumbar levels. Multilevel mild to moderate spurrin g in the thoracolumbar spine. Moderate axial joint space loss in both hips. OTHER: Mild calcified plaque distal abdominal aorta. IMPRESSION: No acute findings are evident.
== END | disposition home or self-care (01) ==
LOC: RADCTMAIN 16:02
PROVIDERS: ATTEND Family Medicine
DX: R19.5 Other fecal abnormalities (principal); R10.9 Unspecified abdominal pain; R14.0 Abdominal distension (gaseous)
CPT/HCPCS: 74176

== ENCOUNTER 2021-02-03 10:37 | Inpatient (IN) | payer OTHER ==
[2021-02-03] MEDS ORDERED: KETOROLAC 30 MG/ML 1 ML VIAL IVP STA (11:30)
[2021-02-03] MEDS ORDERED: SODIUM CHLORIDE 0.9% 1,000 ML IV STA (11:30)
[2021-02-03 12:16] LABS: ALT 40 U/L (4-49); AST 27 U/L (17-59); African American GFR (CKD) >90 (>60 ml/min/1.73 sqM); Alkaline Phosphatase 78 U/L (38-126); Amylase 47 U/L (30-110); Anion Gap 7 mmol/L; Blood Urea Nitrogen 15 mg/dL (9-20); Carbon Dioxide 25 mmol/L (22-30); Chloride 105 mmol/L (98-107); Glucose 121 mg/dL (74-99); Lipase 83 U/L (23-300); Non-African American GFR(CKD) >90 (>60 ml/min/1.73 sqM); Potassium 4.8 mmol/L (3.5-5.1); Sodium 137 mmol/L (137-145); Total Bilirubin 0.5 mg/dL (0.2-1.3)
[2021-02-03 12:18] LABS: Basophils % (A) 0 %; Eosinophils # (A) 0.1 k/uL (0-0.7); Eosinophils % (A) 1 %; HCT 42.5 % (39.0-53.0); HGB 14.7 gm/dL (13.0-17.5); Lymphocytes # (A) 1.6 k/uL (1.0-4.8); Lymphocytes % (A) 13 %; MCH 32.7 pg (25.0-35.0); MCHC 34.5 g/dL (31.0-37.0); MCV 94.8 fL (80.0-100.0); Mean Platelet Volume 8.9; Monocytes # (A) 0.8 k/uL (0-1.0); Monocytes % (A) 6 %; Neutrophils # (A) 9.5 k/uL (1.3-7.7); Neutrophils % (A) 78 %; Platelet Count 289 k/uL (150-450); RBC 4.49 m/uL (4.30-5.90); RDW 12.8 % (11.5-15.5); WBC 12.2 k/uL (3.8-10.6)
--- NOTE | 2021-02-03 12:27 | XR ---
EXAMINATION TYPE: XR chest 2V DATE OF EXAM: 02/03/2021 COMPARISON: 01/20/2014 HISTORY: Shortness of breath TECHNIQUE: Frontal and lateral views of the chest are obtained. FINDINGS: Scattered senescent parenchymal changes noted. Hyperinflation compatible with COPD. No evidence for infiltrate. No evidence for atelectasis. Heart size is stable. Mediastinal structures are stable and grossly unremarkable. No evidence for hilar prominence. Degenerative changes dorsal spine. IMPRESSION: 1. No evidence for acute pulmonary disease.
--- NOTE | 2021-02-03 12:53 | CT ---
EXAMINATION TYPE: CT abdomen pelvis wo con DATE OF EXAM: 02/03/2021 COMPARISON: 08/20/2020 HISTORY: Bilat flank pain x [address] DLP: 3063.2 mGycm Automated exposure control for dose reduction was used. TECHNIQUE: Helical acquisition of images was performed from the lung bases through the pelvis. FINDINGS: LUNG BASES: Basilar subsegmental consolidation and small right pleural effusion. Correlate clinically . LIVER/GB: No significant abnormality is appreciated. PANCREAS: No significant abnormality is seen. SPLEEN: No significant abnormality is seen. ADRENALS: No significant abnormality is seen. KIDNEYS: No nephrolithiasis or hydronephrosis. Motion artifact limits assessment of the margins of th e kidneys appears to be a lower pole indeterminate lesion on the left which is stable from the prior exam. There is anterior cortical loss and indeterminate subcentimeter hypodensity in the anterior mar gin of the right lower pole kidney. ADENOPATHY: None visualized. OSSEOUS STRUCTURES: No significant abnormality is seen. BOWEL: Bowel gas pattern nonspecific with no obstruction. Changes of diverticulosis. OTHER: Hypertrophic and severe degenerative disc disease at multiple levels. Hypertrophic and degener ative change of the spine. IMPRESSION: 1. Right lower lobe infiltrate and small effusion. 2. Diverticulosis. 3. Motion artifact limits exam there is hazy margins of the renal outlines occasionally can be seen w ith infectious etiology correlate with urinalysis. No hydronephrosis or nephrolithiasis. 4. Indeterminate exophytic lesion lower pole left kidney stable from prior exam.
[2021-02-03 13:14] LABS: Appearance,Urine Clear (Clear); Bilirubin,Urine Negative (Negative); Blood,Urine Trace (Negative); Color,Urine Yellow; Glucose,Urine (UA) Negative (Negative); Ketones,Urine Negative (Negative); Leukocyte Esterase,Urine Negative (Negative); Mucus,Urine Few /hpf; Nitrite,Urine Negative (Negative); PH, Urine 5.5 (5.0-8.0); Protein,Urine Trace (Negative); RBC,Urine 2 /hpf (0-5); Specific Gravity,Urine 1.028 (1.001-1.035); Urobilinogen,Urine <2.0 mg/dL (<2.0); WBC,Urine 1 /hpf (0-5)
--- NOTE | 2021-02-03 14:27 | CT ---
EXAMINATION TYPE: CT chest angio for PE DATE OF EXAM: 02/03/2021 COMPARISON: NONE HISTORY: Elevated D dimer, shortness of breath CT DLP: 1422 mGycm. Automated Exposure Control for Dose Reduction was Utilized. CONTRAST: CTA scan of the thorax is performed with IV Contrast, patient injected with 100 mL of Isovue 370, pul monary embolism protocol. MIP Images are created on CT scanner and reviewed. FINDINGS: Exam is suboptimal as there is motion artifact degradation. LUNGS: Low lung volumes and elevated left hemidiaphragm. Tiny posterior right pleural fluid collectio n. Mild scattered linear scarring and/or atelectasis. MEDIASTINUM: There is most dense contrast in the SVC. There is poor opacification and heterogeneity o f the pulmonary arteries. Cannot exclude central saddle pulmonary emboli. Cannot exclude lobar or seg mental pulmonary emboli on this exam. There is suspicion for emboli right lower lobe branch extending into segmental branches axial images 72 through 79. There are no greater than 1 cm hilar or mediasti nal lymph nodes. No cardiomegaly or pericardial effusion is seen. OTHER: Moderate multilevel lateral spurring. IMPRESSION: Suboptimal study without central sagittal pulmonary emboli. Cannot exclude lobar or segme ntal pulmonary emboli on this exam with poor opacification and marked heterogeneity particularly righ t lower lobe as detailed above. Low lung volumes and elevated left hemidiaphragm with mild scattered linear atelectasis bilaterally. Trace right pleural effusion noted. No suspicious focal consolidation .
[2021-02-03] MEDS ORDERED: HEPARIN SODIUM 1,000 UN/ML (10ML VL) IV ONE (15:34)
[2021-02-03] MEDS ORDERED: NALOXONE 0.4 MG/ML 1 ML VIAL IV PRN (15:34)
[2021-02-03] MEDS ORDERED: HEPARIN SODIUM 1,000 UN/ML (10ML VL) IV PRN (15:34)
--- NOTE | 2021-02-03 15:43 | ED ---
General Adult HPI - General Chief complaint: Abdominal Pain Stated complaint: Side pain Time Seen by Provider: 02/03/21 11:22 Source: patient, RN notes reviewed Mode of arrival: ambulatory Limitations: no limitations - History of Present Illness Initial comments: Patient is a 60-year-old male that presents to the emergency department complaining of right subscapular pain. He notes this feels very similar to previous study a pulmonary wasn't. Patient denied any history of kidney stones or trauma to his back. Patient was otherwise well-appearing in no apparent distress or pain. She denied any aggravating or alleviating factors at this time. Patient denied any chest pain shortness of breath headache nausea vomiting diarrhea constipation fever fatigue chills. - Related Data Home Medications Medication Instructions Recorded Confirmed Aspirin EC [Ecotrin Low Dose] 81 mg PO DAILY 02/03/21 02/03/21 Atorvastatin [Lipitor] 20 mg PO HS 02/03/21 02/03/21 Cholecalciferol (Vitamin D3) 75 mcg PO DAILY 02/03/21 02/03/21 [Vitamin D3 (3000 Iu)] Famotidine [Pepcid] 20 mg PO BID 02/03/21 02/03/21 Gabapentin 600 mg PO BID 02/03/21 02/03/21 Metoprolol Tartrate [Lopressor] 25 mg PO BID 02/03/21 02/03/21 hydroCHLOROthiazide 25 mg PO DAILY 02/03/21 02/03/21 Allergies Allergy/AdvReac Type Severity Reaction Status Date / Time No Known Allergies Allergy Verified 02/03/21 13:36 Review of Systems ROS Statement: Those systems with pertinent positive or pertinent negative responses have been documented in the HPI. ROS Other: All systems not noted in ROS Statement are negative. Past Medical History Past Medical History: Heart Failure, Hyperlipidemia, Hypertension Additional Past Medical History / Comment(s): OBESITY; "FLUID AROUND HEART" History of Any Multi-Drug Resistant Organisms: None Reported Past Surgical History: Orthopedic Surgery Additional Past Surgical History / Comment(s): lt hand Past Psychological History: No Psychological Hx Reported Smoking Status: Former smoker Past Alcohol Use History: Occasional Past Drug Use History: Marijuana General Exam Limitations: no limitations General appearance: alert, in no apparent distress, obese (Morbidly) Head exam: Present: atraumatic, normocephalic, normal inspection Eye exam: Present: normal appearance, PERRL, EOMI. Absent: scleral icterus, conjunctival injection, periorbital swelling ENT exam: Present: normal exam, mucous membranes moist Neck exam: Present: normal inspection Respiratory exam: Present: normal lung sounds bilaterally. Absent: respiratory distress, wheezes, rales, rhonchi, stridor Cardiovascular Exam: Present: regular rate, normal rhythm, normal heart sounds. Absent: systolic murmur, diastolic murmur, rubs, gallop, clicks GI/Abdominal exam: Present: soft, normal bowel sounds. Absent: distended, tenderness, guarding, rebound, rigid Extremities exam: Present: normal inspection, full ROM, normal capillary refill. Absent: tenderness, pedal edema, joint swelling, calf tenderness Neurological exam: Present: alert, oriented X3 Psychiatric exam: Present: normal affect, normal mood Skin exam: Present: warm, dry, intact, normal color. Absent: rash Course Vital Signs 02/03/21 10:50 Temperature 97.8 F Pulse Rate 85 Respiratory 20 Rate Blood Pressure 188/77 O2 Sat by Pulse 96 Oximetry Medical Decision Making - Medical Decision Making 60-year-old male with some scapular pain no alleviating or aggravating symptoms pain Labs, chest x-ray, CTA of the chest, CT of the abdomen and pelvis ordered. Labs unremarkable d-dimer elevated at 3.9. CT cannot rule out pulmonary embolism. Patient was heparinized. Case discussed with Dr. Tate, patient will be admitted. Dr. Abraham was consulted AT the admit with pulmonary on consult. - Lab Data Result diagrams: 02/03/21 11:54 02/03/21 11:54 Lab Results 02/03/21 02/03/21 02/03/21 Range/Units 11:54 11:54 12:05 WBC 12.2 H (3.8-10.6) k/uL RBC 4.49 (4.30-5.90) m/uL Hgb 14.7 (13.0-17.5) gm/dL Hct 42.5 (39.0-53.0) % MCV 94.8 (80.0-100.0) fL MCH 32.7 (25.0-35.0) pg MCHC 34.5 (31.0-37.0) g/dL RDW 12.8 (11.5-15.5) % Plt Count 289 (150-450) k/uL MPV 8.9 Neutrophils % 78 % Lymphocytes % 13 % Monocytes % 6 % Eosinophils % 1 % Basophils % 0 % Neutrophils # 9.5 H (1.3-7.7) k/uL Lymphocytes # 1.6 (1.0-4.8) k/uL Monocytes # 0.8 (0-1.0) k/uL Eosinophils # 0.1 (0-0.7) k/uL Basophils # 0.0 (0-0.2) k/uL D-Dimer 3.96 H (<0.60) mg/L FEU Sodium 137 (137-145) mmol/L Potassium 4.8 (3.5-5.1) mmol/L Chloride 105 (98-107) mmol/L Carbon Dioxide 25 (22-30) mmol/L Anion Gap 7 mmol/L BUN 15 (9-20) mg/dL Creatinine 0.83 (0.66-1.25) mg/dL Est GFR (CKD-EPI)AfAm >90 (>60 ml/min/1.73 sqM) Est GFR (CKD-EPI)NonAf >90 (>60 ml/min/1.73 sqM) Glucose 121 H (74-99) mg/dL Calcium 9.0 (8.4-10.2) mg/dL Total Bilirubin 0.5 (0.2-1.3) mg/dL AST 27 (17-59) U/L ALT 40 (4-49) U/L Alkaline Phosphatase 78 (38-126) U/L Total Protein 7.0 (6.3-8.2) g/dL Albumin 4.0 (3.5-5.0) g/dL Amylase 47 (30-110) U/L Lipase 83 (23-300) U/L Urine Color Urine Appearance (Clear) Urine pH (5.0-8.0) Ur Specific [place] (1.001-1.035) Urine Protein (Negative) Urine Glucose (UA) (Negative) Urine Ketones (Negative) Urine Blood (Negative) Urine Nitrite (Negative) Urine Bilirubin (Negative) Urine Urobilinogen (<2.0) mg/dL Ur Leukocyte Esterase (Negative) Urine RBC (0-5) /hpf Urine WBC (0-5) /hpf Urine Mucus (None) /hpf 12/02/21 Range/Units 12:42 WBC (3.8-10.6) k/uL RBC (4.30-5.90) m/uL Hgb (13.0-17.5) gm/dL Hct (39.0-53.0) % MCV (80.0-100.0) fL MCH (25.0-35.0) pg MCHC (31.0-37.0) g/dL RDW (11.5-15.5) % Plt Count (150-450) k/uL MPV Neutrophils % % Lymphocytes % % Monocytes % % Eosinophils % % Basophils % % Neutrophils # (1.3-7.7) k/uL Lymphocytes # (1.0-4.8) k/uL Monocytes # (0-1.0) k/uL Eosinophils # (0-0.7) k/uL Basophils # (0-0.2) k/uL D-Dimer (<0.60) mg/L FEU Sodium (137-145) mmol/L Potassium (3.5-5.1) mmol/L Chloride (98-107) mmol/L Carbon Dioxide (22-30) mmol/L Anion Gap mmol/L BUN (9-20) mg/dL Creatinine (0.66-1.25) mg/dL Est GFR (CKD-EPI)AfAm (>60 ml/min/1.73 sqM) Est GFR (CKD-EPI)NonAf (>60 ml/min/1.73 sqM) Glucose (74-99) mg/dL Calcium (8.4-10.2) mg/dL Total Bilirubin (0.2-1.3) mg/dL AST (17-59) U/L ALT (4-49) U/L Alkaline Phosphatase (38-126) U/L Total Protein (6.3-8.2) g/dL Albumin (3.5-5.0) g/dL Amylase (30-110) U/L Lipase (23-300) U/L Urine Color Yellow Urine Appearance Clear (Clear) Urine pH 5.5 (5.0-8.0) Ur Specific [place] 1.028 (1.001-1.035) Urine Protein Trace H (Negative) Urine Glucose (UA) Negative (Negative) Urine Ketones Negative (Negative) Urine Blood Trace H (Negative) Urine Nitrite Negative (Negative) Urine Bilirubin Negative (Negative) Urine Urobilinogen <2.0 (<2.0) mg/dL Ur Leukocyte Esterase Negative (Negative) Urine RBC 2 (0-5) /hpf Urine WBC 1 (0-5) /hpf Urine Mucus Few H (None) /hpf - Radiology Data Radiology results: report reviewed, image reviewed CTA: Suboptimal study without central sagittal pulmonary emboli. Cannot exclude lobar segmental pulmonary emboli on this exam with poor opacification and marked heterogeneity particularly right lower lobe as detailed above. Low lung volumes and elevated left hemidiaphragm with mild scattered linear atelectasis bilaterally. Trace right pleural effusion noted. No suspicious focal consoli dation. CT of the abdomen and pelvis: Right lower lobe infiltrate and small effusion. Diverticulosis. Indeterminant exophytic lesion lower pole left kidney stable from prior exam. Disposition Clinical Impression: Pulmonary embolism Disposition: ADMITTED IP TO THIS HOSP Condition: Stable Is patient prescribed a controlled substance at d/c from ED?: No Referrals: Selene Schmitt MD [Primary Care Provider] - 1-2 days Time of Disposition: 15:43
[2021-02-03] MEDS ORDERED: MORPHINE SULFATE 4 MG/ML SYRINGE IVP STA (16:22)
[2021-02-03] MEDS ORDERED: ONDANSETRON 4 MG/2 ML VIAL IVP STA (16:22)
[2021-02-03] MEDS: SODIUM CHLORIDE 0.9% 1,000 ML IV SCH (16:28)
[2021-02-03] MEDS: HEPARIN SOD,PORK IN 0.45% NACL 25,000 UNIT in 0.45% NACL 1 250ML.BAG IV SCH (16:34)
--- NOTE | 2021-02-03 17:32 | P.CNPUL ---
History of Present Illness Consult date: 02/03/21 Reason for consult: dyspnea, chest pain History of present illness: Morbidly obese 60-year-old male patient presented to the hospital because of pain in the right subscapular area. Initially the pain was in the left approximately a week ago and later on the patient experienced a dull aching pain along the right lateral chest area. The pain is not pleuritic in nature. It's rather on and off without any known exacerbating or relieving factors. No trauma to the chest. No hemoptysis. No pleurisy. He has chronic exertional dyspnea. Morbidly obese with a BMI of 54.4. No history of travel. No recent surgeries. No history of any malignancy. The patient gives a previous history of a DVT in the left upper extremity that occurred after a hand surgery following a crush injury to his fingers. At that time the patient left upper extremity clot that was not an extensive that embolized to his chest and he was treated and [facility] and [place]. He was treated with warfarin for quite some time and subsequently the anticoagulation was discontinued. He came into the hospital and the patient underwent further workup a d-dimer was slightly elevated at 3.9, patient underwent a CT angiogram that was rather suboptimal study. There was no central pulmonary emboli. Possibility of a right lower lobe pulmonary embolism was entertained based on a questionable segmental filling defect. Diaphragms are quite elevated in the lung basilar atelectatic and the patient has a small left-sided pleural effusion. The patient is currently on IV heparin. The patient also has a CAT scan of the abdomen that showed a right lower lobe infiltrate/effusion along with diverticulosis. The patient also had a troponin that was negative. UA was negative. COVID 19 testing was also negative. Review of Systems Constitutional: Reports daytime sleepiness, Reports weight gain Eyes: denies as per HPI, denies blurred vision, denies bulging eye, denies decreased vision, denies diplopia, denies discharge, denies dry eye, denies irritation, denies itching, denies pain, denies photophobia, denies loss of peripheral vision, denies loss of vision, denies tunnel vision/blind spots Ears: deny: decreased hearing, ear discharge, earache, tinnitus Ears, nose, mouth and throat: Reports as per HPI Breasts: absent: as per HPI, gynecomastia Cardiovascular: Reports chest pain, Reports decreased exercise tolerance Respiratory: Reports dyspnea Gastrointestinal: Reports as per HPI Genitourinary: Reports as per HPI Musculoskeletal: Reports as per HPI Musculoskeletal: absent: ankle pain, ankle stiffness, ankle swelling, as per HPI, elbow pain, elbow stiffness, elbow swelling, foot pain, foot stiffness, foot swelling, hand pain, hand stiffness, hand swelling, hip pain, hip stiffness, hip swelling, knee pain, knee stiffness, knee swelling, shoulder pain, shoulder stiffness, shoulder swelling, wrist pain, wrist stiffness, wrist swelling Integumentary: Reports as per HPI Neurological: Reports as per HPI Psychiatric: Reports as per HPI Endocrine: Reports as per HPI Hematologic/Lymphatic: Reports as per HPI Allergic/Immunologic: Reports as per HPI Past Medical History Past Medical History: Heart Failure, Hyperlipidemia, Hypertension Additional Past Medical History / Comment(s): OBESITY; "FLUID AROUND HEART" History of Any Multi-Drug Resistant Organisms: None Reported Past Surgical History: Orthopedic Surgery Additional Past Surgical History / Comment(s): lt hand Past Psychological History: No Psychological Hx Reported Smoking Status: Former smoker Past Alcohol Use History: Occasional Past Drug Use History: Marijuana Medications and Allergies Home Medications Medication Instructions Recorded Confirmed Type Aspirin EC [Ecotrin Low Dose] 81 mg PO DAILY 02/03/21 02/03/21 History Atorvastatin [Lipitor] 20 mg PO HS 02/03/21 02/03/21 History Cholecalciferol (Vitamin D3) 75 mcg PO DAILY 02/03/21 02/03/21 History [Vitamin D3 (3000 Iu)] Famotidine [Pepcid] 20 mg PO BID 02/03/21 02/03/21 History Gabapentin 600 mg PO BID 02/03/21 02/03/21 History Metoprolol Tartrate [Lopressor] 25 mg PO BID 02/03/21 02/03/21 History hydroCHLOROthiazide 25 mg PO DAILY 02/03/21 02/03/21 History Allergies Allergy/AdvReac Type Severity Reaction Status Date / Time No Known Allergies Allergy Verified 02/03/21 13:36 Physical Exam Vitals: Vital Signs Temp Pulse Resp BP Pulse Ox 02/03/21 17:22 88 20 133/60 97 02/03/21 10:50 97.8 F 85 20 188/77 96 Intake and Output 12/02/21 12/02/21 12/02/21 06:59 14:59 22:59 Other: Weight 197.313 kg General appearance: alert, in no apparent distress, obese (Morbidly), and BMI of 54.4 Head exam: Present: atraumatic, normocephalic, normal inspection Eye exam: Present: normal appearance, PERRL, EOMI. Absent: scleral icterus, conjunctival injection, periorbital swelling ENT exam: Present: normal exam, mucous membranes moist Neck exam: Present: normal inspection Respiratory exam: Present: normal lung sounds bilaterally. Absent: respiratory distress, wheezes, rales, rhonchi, stridor Cardiovascular Exam: Present: regular rate, normal rhythm, normal heart sounds. Absent: systolic murmur, diastolic murmur, rubs, gallop, clicks GI/Abdominal exam: Present: soft, normal bowel sounds. Absent: distended, tenderness, guarding, rebound, rigid Extremities exam: Present: normal inspection, full ROM, normal capillary refill. Absent: tenderness, pedal edema, joint swelling, calf tenderness Neurological exam: Present: alert, oriented X3 Psychiatric exam: Present: normal affect, normal mood Skin exam: Present: warm, dry, intact, normal color. Absent: rash Results - Laboratory Findings CBC and BMP: 02/03/21 11:54 02/03/21 11:54 PT/INR, D-dimer D-Dimer 3.96 mg/L FEU (<0.60) H 02/03/21 12:05 Abnormal lab findings: Abnormal Labs 02/03/21 02/03/21 02/03/21 11:54 11:54 12:05 WBC 12.2 H Neutrophils # 9.5 H D-Dimer 3.96 H Glucose 121 H Urine Protein Urine Blood Urine Mucus 02/03/21 12:42 WBC Neutrophils # D-Dimer Glucose Urine Protein Trace H Urine Blood Trace H Urine Mucus Few H - Diagnostic Findings Chest x-ray: image reviewed CT scan - chest: image reviewed Assessment and Plan Plan: 1 acute chest pain, suspicious for a pulmonary embolism. Patient has a previous history of DVT of left lower extremity and pulmonary embolism back in the 90s. Treated with anticoagulation. Patient is coming in with a nonspecific chest pain. Nevertheless, there is a filling defect in the right lower lobe pulmonary artery branch along with some small effusion. No other alternative isolation for his pain. He is at a high risk of having DVT and pulmonary embolism based on his morbid obesity and a rather sedentary lifestyle. Dopplers are to follow. D-dimer is currently at 3.9. The patient is currently on IV heparin. 2 previous history of a left upper extremity DVT and pulmonary embolism back in the 90s, 3 morbid obesity with BMI 54 4 obstructive sleep apnea 5 hypertension 6 hyperlipidemia Plan Obtain Doppler of the lower extremities Obtain the echocardiogram Continue IV heparin for now and monitor the chest pain Allow the patient utilizes home CPAP machine We will likely need long-term anticoagulation regarding the possibility of recurrent pulmonary embolism. This was explained to the patient We'll continue to follow.
[2021-02-03] MEDS ORDERED: HYDROmorphone 0.5 MG/0.5 ML SYRINGE IVP STA (22:13)
--- NOTE | 2021-02-03 22:59 | P.HPIM ---
History of Present Illness H&P Date: 02/03/21 Chief Complaint: Right subscapular pain. Patient is a 60-year-old male with a known history of hypertension, hyperlipidemia, history of DVT/PE and previous history of smoking presented to ER with complaints of right subscapular area pain for the past 1 day. Patient says that he was having left lower chest pain for the past 1 week and started having right-sided pain today. Patient is sharp and catching his breath. No complaints of fever or chills. No complaints of chest pain. Patient does have exertional dyspnea which is chronic. No nausea vomiting or abdominal pain or diarrhea. Patient says that he has been having on and off left lower knee swelling from the previous injury but denied any recent increases swelling. History of DVT in the left lower extremity previously. Patient was on anticoagulation which has been discontinued. On admission d-dimer was at 3.96 And CTA chest showed suboptimal study without central sagittal pulmonary emboli. Cannot exclude lobar or segmental pulmonary emboli on this exam with poor opacification and marked heterogenicity particularly right lower lobe. CT abdomen pelvis showed right lower lobe infiltrate and small effusion. Diverticulosis. Motion artifact limits the exam there is hazy margins of the renal outlines occasionally can be seen with infectious etiology correlate with urinalysis. Intermediate exophoria takes lesion lower pole left kidney stable from prior exam. On admission blood pressure 188/77 pulse is 85 to 20 and pulse ox 96% on room air. UA negative for infection Review of Systems Constitutional: Patient denies any fever or chills . No generalized weakness or weight loss. Abdomen: Patient denied nausea vomiting and diarrhea and abdominal pain. Cardiovascular: Patient denies any chest pain or short of breath no palpitations. Respiratory: patient denied any cough is from production. No shortness of breath. Right subscapular pain. Neurologic: Patient denied any numbness or tingling headache. Musculoskeletal: Patient denies any complaints of joint swelling or deformity. Skin: Negative Psychiatric: Negative Endocrine: No heat or cold intolerance. No recent weight gain. Genitourinary: No dysuria or hematuria. All other 14 point ROS negative except the above Past Medical History Past Medical History: Heart Failure, Hyperlipidemia, Hypertension Additional Past Medical History / Comment(s): OBESITY; "FLUID AROUND HEART" History of Any Multi-Drug Resistant Organisms: None Reported Past Surgical History: Orthopedic Surgery Additional Past Surgical History / Comment(s): lt hand Past Anesthesia/Blood Transfusion Reactions: No Reported Reaction Past Psychological History: No Psychological Hx Reported Smoking Status: Former smoker Past Alcohol Use History: Occasional Past Drug Use History: Marijuana - Past Family History Father Family Medical History: Diabetes Mellitus Mother Family Medical History: Cancer, Deep Vein Thrombosis (DVT) Medications and Allergies Home Medications Medication Instructions Recorded Confirmed Type Aspirin EC [Ecotrin Low Dose] 81 mg PO DAILY 02/03/21 02/03/21 History Atorvastatin [Lipitor] 20 mg PO HS 02/03/21 02/03/21 History Cholecalciferol (Vitamin D3) 75 mcg PO DAILY 02/03/21 02/03/21 History [Vitamin D3 (3000 Iu)] Famotidine [Pepcid] 20 mg PO BID 02/03/21 02/03/21 History Gabapentin 600 mg PO BID 02/03/21 02/03/21 History Metoprolol Tartrate [Lopressor] 25 mg PO BID 02/03/21 02/03/21 History hydroCHLOROthiazide 25 mg PO DAILY 02/03/21 02/03/21 History Allergies Allergy/AdvReac Type Severity Reaction Status Date / Time No Known Allergies Allergy Verified 02/03/21 13:36 Physical Exam Vitals: Vital Signs Temp Pulse Pulse Resp BP BP Pulse Ox 02/03/21 22:06 98.9 F 93 20 174/74 95 02/03/21 21:29 85 22 126/44 95 02/03/21 20:00 78 16 136/76 95 02/03/21 17:22 88 20 133/60 97 02/03/21 10:50 97.8 F 85 20 188/77 96 Intake and Output 02/03/21 02/03/21 02/03/21 06:59 14:59 22:59 Other: Weight 197.313 kg 197.313 kg PHYSICAL EXAMINATION: Patient is lying in the bed comfortably, no acute distress, awake alert and oriented. Morbidly obese.. HEENT: Normocephalic. Neck is supple. Pupils reactive. Nostrils clear. Oral cavity is moist. Neck reveals no JVD, carotid bruits, or thyromegaly. CHEST EXAMINATION: Trachea is central. Symmetrical expansion. Bibasilar diminished sounds. No wheezing. Lung cotter clear to auscultation and percussion. CARDIAC: Normal S1, S2 with no gallops. No murmurs ABDOMEN: Soft. Bowel sounds normal. No organomegaly. No abdominal bruits. Extremities: reveal no edema. No clubbing or cyanosis Neurologically awake, alert, oriented x3 with well-coordinated movements. No focal deficits noted Skin: No rash or skin lesions. Psychiatric: Coperative. Nonsuicidal Musculoskeletal: No joint swelling or deformity. Normal range of motion. Results CBC & Chem 7: 02/03/21 23:45 02/03/21 11:54 Labs: Abnormal Lab Results - Last 24 Hours (Table) 02/03/21 02/03/21 02/03/21 Range/Units 11:54 11:54 12:05 WBC 12.2 H (3.8-10.6) k/uL Neutrophils # 9.5 H (1.3-7.7) k/uL D-Dimer 3.96 H (<0.60) mg/L FEU Glucose 121 H (74-99) mg/dL Urine Protein (Negative) Urine Blood (Negative) Urine Mucus (None) /hpf 02/03/21 Range/Units 12:42 WBC (3.8-10.6) k/uL Neutrophils # (1.3-7.7) k/uL D-Dimer (<0.60) mg/L FEU Glucose (74-99) mg/dL Urine Protein Trace H (Negative) Urine Blood Trace H (Negative) Urine Mucus Few H (None) /hpf Thrombosis Risk Factor Assmnt - DVT/VTE Prophylaxis DVT/VTE Prophylaxis: Pharmacologic Prophylaxis ordered - Choose All That Apply Any of the Below Risk Factors Present?: Yes Each Factor Represents 1 point: Medical pt on bed rest, Obesity (BMI >25), Serious lung disease incl. pneumonia (< 1month), Swollen legs (current), Varicose veins Other Risk Factors: No Other congenital or acquired thrombophilia - If yes, enter type in comment: No Thrombosis Risk Factor Assessment Total Risk Factor Score: 5 Thrombosis Risk Factor Assessment Level: High Risk Assessment and Plan Assessment: Acute right subscapular chest pain. Patient does have a history of left lower DVT and was on Antivert ablation warfarin. Elevated d-dimer level with CTA showing filling defect in the right lower lobe pulmonary process. Patient is being continued on heparin drip currently due to high risk for PE. Lower admitted duplex scan was ordered. Previous history of left lower extremity DVT and PE Morbid obesity BMI 57.5 Hypertension Hyponatremia Objective sleep apnea on CPAP Plan: Patient will be continued on heparin drip. Bilateral lower action duplex and 2- D echo cardiac was ordered. Monitor lites and continue CPAP at night. Pulmonary is on board. Continue to follow closely. Continue with home medications.
[2021-02-03] MEDS: MELATONIN 5 MG TABLET PO SCH (23:17)
[2021-02-03] MEDS: GABAPENTIN 300 MG CAP PO SCH (23:17)
[2021-02-03] MEDS: METOPROLOL TARTRATE 25 MG TAB PO SCH (23:17)
--- NOTE | 2021-02-03 23:17 | US ---
EXAMINATION TYPE: US venous doppler duplex LE DATE OF EXAM: 02/03/2021 6:48 PM COMPARISON: US CLINICAL HISTORY: elevated d-dimer. Elevated D Dimer. Patient is on heparin. SIDE PERFORMED: Bilateral TECHNIQUE: The lower extremity deep venous system is examined utilizing real time linear array sonog christina with graded compression, doppler sonography and color-flow sonography. VESSELS IMAGED: Common Femoral Vein Deep Femoral Vein Greater Saphenous Vein * Femoral Vein Popliteal Vein Small Saphenous Vein * Proximal Calf Veins (* superficial vessels) Right Leg: No evidence of DVT in veins imaged at this time. Limited evaluation of upper CFV due to b meagan habitus. Left Leg: No evidence of DVT in veins imaged at this time. Limited evaluation of upper CFV due to body habitus. IMPRESSION: No evidence of deep vein thrombosis in both legs.
[2021-02-03] MEDS: FAMOTIDINE 20 MG TAB PO SCH (23:19)
[2021-02-04 00:15] LABS: Basophils % (A) 0 %; Eosinophils # (A) 0.1 k/uL (0-0.7); Eosinophils % (A) 1 %; HCT 39.2 % (39.0-53.0); HGB 13.2 gm/dL (13.0-17.5); Lymphocytes # (A) 1.5 k/uL (1.0-4.8); Lymphocytes % (A) 14 %; MCH 32.7 pg (25.0-35.0); MCHC 33.7 g/dL (31.0-37.0); MCV 97.1 fL (80.0-100.0); Mean Platelet Volume 9.1; Monocytes # (A) 0.8 k/uL (0-1.0); Monocytes % (A) 8 %; Neutrophils # (A) 8.5 k/uL (1.3-7.7); Neutrophils % (A) 76 %; Platelet Count 287 k/uL (150-450); RBC 4.04 m/uL (4.30-5.90); RDW 13.4 % (11.5-15.5); WBC 11.2 k/uL (3.8-10.6)
[2021-02-04] MEDS: SODIUM CHLORIDE 0.9% 1,000 ML IV SCH ×2 (00:45→17:52)
[2021-02-04] MEDS: HEPARIN SOD,PORK IN 0.45% NACL 25,000 UNIT in 0.45% NACL 1 250ML.BAG IV SCH ×2 (04:19→16:24)
[2021-02-04] MEDS: HYDROcodone/APAP 5-325MG 1 EACH TAB PO PRN ×3 (04:19→20:25)
[2021-02-04 05:57] LABS: Glucose,Whole Blood 145 mg/dL (75-99)
[2021-02-04] MEDS: ASPIRIN 81 MG PO SCH (08:55)
[2021-02-04] MEDS: METOPROLOL TARTRATE 25 MG TAB PO SCH ×2 (08:56→20:24)
[2021-02-04] MEDS: FAMOTIDINE 20 MG TAB PO SCH ×2 (08:56→20:24)
[2021-02-04] MEDS: CHOLECALCIFEROL 25 MCG (1000 IU) TABLET PO SCH (08:56)
[2021-02-04] MEDS: GABAPENTIN 300 MG CAP PO SCH ×2 (08:56→20:24)
[2021-02-04 10:56] LABS: Basophils % (A) 0 %; Eosinophils # (A) 0.1 k/uL (0-0.7); Eosinophils % (A) 1 %; HCT 38.4 % (39.0-53.0); HGB 12.7 gm/dL (13.0-17.5); Lymphocytes # (A) 1.4 k/uL (1.0-4.8); Lymphocytes % (A) 14 %; MCH 32.6 pg (25.0-35.0); MCHC 33.1 g/dL (31.0-37.0); MCV 98.4 fL (80.0-100.0); Mean Platelet Volume 9.6; Monocytes # (A) 0.8 k/uL (0-1.0); Monocytes % (A) 8 %; Neutrophils # (A) 7.4 k/uL (1.3-7.7); Neutrophils % (A) 76 %; Platelet Count 270 k/uL (150-450); RDW 13.4 % (11.5-15.5); WBC 9.8 k/uL (3.8-10.6)
--- NOTE | 2021-02-04 11:00 | ECHOF ---
Referral Reason:Pulmonary embolism MEASUREMENTS -------- HEIGHT: 185.4 cm WEIGHT: 208.7 kg BP: IVSd: 1.7 cm (0.6 - 1.1) LVIDd: 4.3 cm (3.9 - 5.3) LVPWd: 1.9 cm (0.6 - 1.1) IVSs: 2.3 cm LVIDs: 3.3 cm LVPWs: 2.0 cm Ao Diam: 3.8 cm (2.0 - 3.7) AV Cusp: 2.6 cm (1.5 - 2.6) LA Diam: 4.5 cm (2.7 - 3.8) MV EXCURSION: 17.354 mm (> 18.000) MV EF SLOPE: 127 mm/s (70 - 150) EPSS: 0.7 cm MV E Alec: 0.65 m/s MV DecT: 205 ms MV A Alec: 0.67 m/s MV E/A Ratio: 0.97 RAP: 5.00 mmHg RVSP: 15.52 mmHg FINDINGS -------- This was a technically difficult study with suboptimal views. The left ventricular size is normal. There is moderate concentric left ventricular hypertrophy. O verall left ventricular systolic function is normal with, an EF between 55 - 60 %. The RV was not well visualized. The left atrium was not well visualized. The right atrium was not well visualized. Lumason used The aortic valve was not well visualized. The mitral valve was not well visualized. There is trace mitral regurgitation. The tricuspid valve was not well visualized. Trace tricuspid regurgitation present. Right ventric ular systolic pressure is normal at < 35 mmHg. The pulmonic valve was not well visualized. There is no pericardial effusion. CONCLUSIONS -------- 1. The left ventricular size is normal. 2. There is moderate concentric left ventricular hypertrophy. 3. Overall left ventricular systolic function is normal with, an EF between 55 - 60 %. 4. There is trace mitral regurgitation. 5. Trace tricuspid regurgitation present. 6. There is no pericardial effusion. [employer]: Marietta Thompson RDCS
[2021-02-04 12:12] LABS: Glucose,Whole Blood 122 mg/dL (75-99)
--- NOTE | 2021-02-04 15:58 | P.PN ---
Subjective Progress Note Date: 02/04/21 Morbidly obese 60-year-old male patient presented to the hospital because of pain in the right subscapular area. Initially the pain was in the left approximately a week ago and later on the patient experienced a dull aching pain along the right lateral chest area. The pain is not pleuritic in nature. It's rather on and off without any known exacerbating or relieving factors. No trauma to the chest. No hemoptysis. No pleurisy. He has chronic exertional dyspnea. Morbidly obese with a BMI of 54.4. No history of travel. No recent surgeries. No history of any malignancy. The patient gives a previous history of a DVT in the left upper extremity that occurred after a hand surgery following a crush injury to his fingers. At that time the patient left upper extremity clot that was not an extensive that embolized to his chest and he was treated and [facility] and [place]. He was treated with warfarin for quite some time and subsequently the anticoagulation was discontinued. He came into the hospital and the patient underwent further workup a d-dimer was slightly elevated at 3.9, patient underwent a CT angiogram that was rather suboptimal study. There was no central pulmonary emboli. Possibility of a right lower lobe pulmonary embolism was entertained based on a questionable segmental filling defect. Diaphragms are quite elevated in the lung basilar atelectatic and the patient has a small left-sided pleural effusion. The patient is currently on IV heparin. The patient also has a CAT scan of the abdomen that showed a right lower lobe infiltrate/effusion along with diverticulosis. The patient also had a troponin that was negative. UA was negative. COVID 19 testing was also negative. On today's evaluation of 02/04/2021, the patient is being seen for a follow-up. He is still having some nonspecific body aches and chest discomfort. I'm not sure this is related to pulmonary embolism. I reviewed the CAT scan of the chest. There may be a pulmonary embolism in the right lower lobe pulmonary artery branch. Nevertheless, I'm not absolutely sure knowing that the patient d-dimer was mildly elevated and the Doppler lower extremity came back negative and echocardiogram also showed a preserved LV function with an ejection fraction of 55-60%. He is currently holding her pulse ox of 94%. He was able to bring in his VPAP machine from home and the patient has a VPAP auto minimum pressure of 12 cm of water and maximum pressure 22 and a pressure support of 3. His been extremely compliant to his treatment is been successful while utilizing a full face mask. He remains on IV heparin for now. Objective - Vital Signs Vital signs: Vital Signs Temp 98.4 F 02/04/21 13:00 Pulse 65 02/04/21 13:00 Resp 20 02/04/21 13:00 BP 102/58 02/04/21 13:00 Pulse Ox 91 L 02/04/21 13:00 Intake & Output 02/03/21 02/04/21 02/04/21 18:59 06:59 18:59 Intake Total 250.000 240 Output Total 300 0 Balance -50.000 240 Weight 197.313 kg 208.8 kg Intake: Intake, IV Titration 250.000 Amount Heparin Sod,Pork in 0.45% 250.000 NaCl 25,000 unit In 0.45 % NaCl 1 250ml.bag @ 11. 66 UNITS/KG/HR 23.007 mls /hr IV .[id number] [facility] Rx#: [id number] Oral 240 Output: Urine 300 0 Stool 0 Urine/Stool Mix 0 Other: # Voids 0 # Bowel Movements 0 - Exam General appearance: alert, in no apparent distress, obese (Morbidly), and BMI of 54.4 Head exam: Present: atraumatic, normocephalic, normal inspection Eye exam: Present: normal appearance, PERRL, EOMI. Absent: scleral icterus, conjunctival injection, periorbital swelling ENT exam: Present: normal exam, mucous membranes moist Neck exam: Present: normal inspection Respiratory exam: Present: normal lung sounds bilaterally. Absent: respiratory distress, wheezes, rales, rhonchi, stridor Cardiovascular Exam: Present: regular rate, normal rhythm, normal heart sounds. Absent: systolic murmur, diastolic murmur, rubs, gallop, clicks GI/Abdominal exam: Present: soft, normal bowel sounds. Absent: distended, tenderness, guarding, rebound, rigid Extremities exam: Present: normal inspection, full ROM, normal capillary refill. Absent: tenderness, pedal edema, joint swelling, calf tenderness Neurological exam: Present: alert, oriented X3 Psychiatric exam: Present: normal affect, normal mood Skin exam: Present: warm, dry, intact, normal color. Absent: rash - Labs CBC & Chem 7: 02/04/21 08:45 02/03/21 11:54 Labs: Abnormal Lab Results - Last 24 Hours (Table) 02/03/21 02/03/21 02/04/21 Range/Units 23:45 23:45 05:54 WBC 11.2 H (3.8-10.6) k/uL RBC 4.04 L (4.30-5.90) m/uL Hgb (13.0-17.5) gm/dL Hct (39.0-53.0) % Neutrophils # 8.5 H (1.3-7.7) k/uL APTT 38.1 H (22.0-30.0) sec POC Glucose (mg/dL) 145 H (75-99) mg/dL 02/04/21 02/04/21 02/04/21 Range/Units 08:45 12:03 15:11 WBC (3.8-10.6) k/uL RBC 3.90 L (4.30-5.90) m/uL Hgb 12.7 L (13.0-17.5) gm/dL Hct 38.4 L (39.0-53.0) % Neutrophils # (1.3-7.7) k/uL APTT 33.7 H (22.0-30.0) sec POC Glucose (mg/dL) 122 H (75-99) mg/dL Assessment and Plan Plan: 1 acute chest pain, suspicious for a pulmonary embolism. Patient has a previous history of DVT of left lower extremity and pulmonary embolism back in the . Treated with anticoagulation. Patient is coming in with a nonspecific chest pain. Nevertheless, there is a filling defect in the right lower lobe pulmonary artery branch along with some small effusion. No other alternative isolation for his pain. He is at a high risk of having DVT and pulmonary embolism based on his morbid obesity and a rather sedentary lifestyle. Dopplers of the lower extremities were negative. The patient d-dimer was low at 3.9. The patient had an echocardiac Sly showing no significant pulmonary hypertension or RV dysfunction. Preserved LV function. The patient remains on IV heparin. He is having some nonspecific chest pain and some headaches. 2 previous history of a left upper extremity DVT and pulmonary embolism back in the , 3 morbid obesity with BMI 54 4 obstructive sleep apnea 5 hypertension 6 hyperlipidemia Plan Repeat chest x-ray Currently on room air oxygen Continue IV heparin for now and monitor the chest pain Allow the patient utilizes home BiPAP machine and machine was checked and the settings are adequate and the patient is being successfully treated We will likely need long-term anticoagulation regarding the possibility of recurrent pulmonary embolism. This was explained to the patient We'll continue to follow. I'm going to switch this patient oral and cognitive of tomorrow.
[2021-02-04 16:45] LABS: Glucose,Whole Blood 102 mg/dL (75-99)
--- NOTE | 2021-02-04 16:48 | XR ---
EXAMINATION TYPE: XR chest 2V DATE OF EXAM: 02/04/2021 COMPARISON: 02/03/2021 HISTORY: Shortness of breath TECHNIQUE: Frontal and lateral views of the chest are obtained. FINDINGS: Scattered senescent parenchymal changes noted. Hyperinflation compatible with COPD. No evidence for infiltrate. No evidence for atelectasis. Heart size is stable. Mediastinal structures are stable and grossly unremarkable. No evidence for hilar prominence. Degenerative changes dorsal spine. IMPRESSION: 1. No evidence for acute pulmonary disease.
[2021-02-04 20:17] LABS: Glucose,Whole Blood 123 mg/dL (75-99)
[2021-02-04] MEDS: MELATONIN 5 MG TABLET PO SCH (20:24)
[2021-02-04] MEDS: ATORVASTATIN 20 MG TAB PO SCH (20:24)
[2021-02-05] MEDS: HEPARIN SOD,PORK IN 0.45% NACL 25,000 UNIT in 0.45% NACL 1 250ML.BAG IV SCH ×2 (00:14→06:27)
[2021-02-05] MEDS: HYDROcodone/APAP 5-325MG 1 EACH TAB PO PRN ×3 (04:16→22:59)
[2021-02-05] MEDS: SODIUM CHLORIDE 0.9% 1,000 ML IV SCH ×2 (05:23→16:46)
[2021-02-05 06:21] LABS: Basophils % (A) 0 %; Eosinophils # (A) 0.2 k/uL (0-0.7); Eosinophils % (A) 2 %; HCT 35.6 % (39.0-53.0); HGB 11.8 gm/dL (13.0-17.5); Lymphocytes # (A) 1.6 k/uL (1.0-4.8); Lymphocytes % (A) 17 %; MCH 31.9 pg (25.0-35.0); MCHC 33.1 g/dL (31.0-37.0); MCV 96.4 fL (80.0-100.0); Mean Platelet Volume 9.2; Monocytes # (A) 0.7 k/uL (0-1.0); Monocytes % (A) 8 %; Neutrophils # (A) 6.8 k/uL (1.3-7.7); Neutrophils % (A) 71 %; Platelet Count 250 k/uL (150-450); RBC 3.69 m/uL (4.30-5.90); RDW 12.8 % (11.5-15.5); WBC 9.5 k/uL (3.8-10.6)
[2021-02-05 06:54] LABS: Glucose,Whole Blood 125 mg/dL (75-99)
[2021-02-05 06:59] LABS: African American GFR (CKD) >90 (>60 ml/min/1.73 sqM); Anion Gap 6 mmol/L; Blood Urea Nitrogen 12 mg/dL (9-20); Calcium 8.4 mg/dL (8.4-10.2); Carbon Dioxide 24 mmol/L (22-30); Chloride 107 mmol/L (98-107); Glucose 135 mg/dL (74-99); Non-African American GFR(CKD) >90 (>60 ml/min/1.73 sqM); Potassium 4.3 mmol/L (3.5-5.1); Sodium 137 mmol/L (137-145)
[2021-02-05] MEDS: FAMOTIDINE 20 MG TAB PO SCH ×2 (08:47→20:30)
[2021-02-05] MEDS: ASPIRIN 81 MG PO SCH (08:47)
[2021-02-05] MEDS: CHOLECALCIFEROL 25 MCG (1000 IU) TABLET PO SCH (08:47)
[2021-02-05] MEDS: GABAPENTIN 300 MG CAP PO SCH ×2 (08:47→20:30)
[2021-02-05] MEDS: METOPROLOL TARTRATE 25 MG TAB PO SCH ×2 (08:48→20:30)
[2021-02-05 11:30] LABS: Glucose,Whole Blood 134 mg/dL (75-99)
[2021-02-05] MEDS: APIXABAN 5 MG TAB PO SCH ×2 (12:21→20:30)
--- NOTE | 2021-02-05 13:46 | P.PN ---
Subjective Progress Note Date: 02/04/21 Principal diagnosis: Acute PE Patient is a 60-year-old male with a known history of hypertension, hyperlipidemia, history of DVT/PE and previous history of smoking presented to ER with complaints of right subscapular area pain for the past 1 day. Patient says that he was having left lower chest pain for the past 1 week and started having right-sided pain today. Patient is sharp and catching his breath. No complaints of fever or chills. No complaints of chest pain. Patient does have exertional dyspnea which is chronic. No nausea vomiting or abdominal pain or diarrhea. Patient says that he has been having on and off left lower knee swelling from the previous injury but denied any recent increases swelling. History of DVT in the left lower extremity previously. Patient was on anticoagulation which has been discontinued. On admission d-dimer was at 3.96 And CTA chest showed suboptimal study without central sagittal pulmonary emboli. Cannot exclude lobar or segmental pulmonary emboli on this exam with poor opacification and marked heterogenicity particularly right lower lobe. CT abdomen pelvis showed right lower lobe infiltrate and small effusion. Divert iculosis. Motion artifact limits the exam there is hazy margins of the renal outlines occasionally can be seen with infectious etiology correlate with urinalysis. Intermediate exophoria takes lesion lower pole left kidney stable from prior exam. On admission blood pressure 188/77 pulse is 85 to 20 and pulse ox 96% on room air. UA negative for infection 02/04/2021 Patient is currently lying in the bed. Still complaining of right posterior lower chest discomfort and also complaining of cough. Pain is better compared to yesterday. Currently being continued on heparin drip due to right lower lobe pulmonary embolism. Bilateral lower action duplex scan is negative for DVT. 2-D echo Showed Normal Ejection Fraction and No Evidence of Right Ventricular Strain. Patient Is Also on CPAP for Upper to Sleep Apnea. Patient Is Being Continued on Heparin Drip. Laboratory Data Showed WBC 9.8 Hemoglobin 12.7 and Platelets 270. Pulmonary Is on Board. Current Medications Reviewed. Objective - Vital Signs Vital signs: Vital Signs Temp 98.6 F 02/04/21 19:47 Pulse 69 02/04/21 19:47 Resp 22 02/04/21 19:47 BP 134/74 02/04/21 19:47 Pulse Ox 94 L 02/04/21 19:47 Intake & Output 02/04/21 02/04/21 02/05/21 06:59 18:59 06:59 Intake Total 906.149 0497 Output Total 300 350 Balance -50.000 1620 Weight 208.8 kg Intake: Intake, IV Titration 188.428 3431 Amount Heparin Sod,Pork in 0.45% 250.000 250 NaCl 25,000 unit In 0.45 % NaCl 1 250ml.bag @ 11. 66 UNITS/KG/HR 23.007 mls /hr IV .[id number] [facility] Rx#: [id number] Sodium Chloride 0.9% 1, 750 000 ml @ 75 mls/hr IV . [id number] [facility] Rx#:[id number] Oral 970 Output: Urine 300 350 Stool 0 Urine/Stool Mix 0 Other: # Voids 0 # Bowel Movements 0 - Exam PHYSICAL EXAMINATION: Patient is lying in the bed comfortably, no acute distress, awake alert and oriented. Morbidly obese.. HEENT: Normocephalic. Neck is supple. Pupils reactive. Nostrils clear. Oral cavity is moist. Neck reveals no JVD, carotid bruits, or thyromegaly. CHEST EXAMINATION: Trachea is central. Symmetrical expansion. Right basilar crackles. No wheezing. Lung cotter clear to auscultation and percussion. CARDIAC: Normal S1, S2 with no gallops. No murmurs ABDOMEN: Soft. Bowel sounds normal. No organomegaly. No abdominal bruits. Extremities: reveal no edema. No clubbing or cyanosis Neurologically awake, alert, oriented x3 with well-coordinated movements. No focal deficits noted Skin: No rash or skin lesions. Psychiatric: Coperative. Nonsuicidal Musculoskeletal: No joint swelling or deformity. Normal range of motion. - Labs CBC & Chem 7: 02/05/21 06:00 02/05/21 06:00 Labs: Abnormal Lab Results - Last 24 Hours (Table) 02/03/21 02/03/21 02/04/21 Range/Units 23:45 23:45 05:54 WBC 11.2 H (3.8-10.6) k/uL RBC 4.04 L (4.30-5.90) m/uL Hgb (13.0-17.5) gm/dL Hct (39.0-53.0) % Neutrophils # 8.5 H (1.3-7.7) k/uL APTT 38.1 H (22.0-30.0) sec POC Glucose (mg/dL) 145 H (75-99) mg/dL 02/04/21 02/04/21 02/04/21 Range/Units 08:45 12:03 15:11 WBC (3.8-10.6) k/uL RBC 3.90 L (4.30-5.90) m/uL Hgb 12.7 L (13.0-17.5) gm/dL Hct 38.4 L (39.0-53.0) % Neutrophils # (1.3-7.7) k/uL APTT 33.7 H (22.0-30.0) sec POC Glucose (mg/dL) 122 H (75-99) mg/dL 02/04/21 02/04/21 Range/Units 16:43 20:13 WBC (3.8-10.6) k/uL RBC (4.30-5.90) m/uL Hgb (13.0-17.5) gm/dL Hct (39.0-53.0) % Neutrophils # (1.3-7.7) k/uL APTT (22.0-30.0) sec POC Glucose (mg/dL) 102 H 123 H (75-99) mg/dL Assessment and Plan Assessment: Acute PE Acute right subscapular chest pain. Patient does have a history of left lower DVT and was on Antivert ablation warfarin. Elevated d-dimer level with CTA showing filling defect in the right lower lobe pulmonary process. Patient is being continued on heparin drip currently due to high risk for PE. Lower admitted duplex scan was ordered. Previous history of left lower extremity DVT and PE Morbid obesity BMI 57.5 Hypertension Hyponatremia Objective sleep apnea on CPAP Plan: Patient will be continued on heparin drip. Bilateral lower action duplex and 2- D echo cardiac was done.. Monitor lites and continue CPAP at night. Pulmonary is on board. Continue to follow closely. Continue with home medications. Time with Patient: Greater than 30
--- NOTE | 2021-02-05 14:46 | P.PN ---
Subjective Progress Note Date: 02/05/21 Morbidly obese 60-year-old male patient presented to the hospital because of pain in the right subscapular area. Initially the pain was in the left approximately a week ago and later on the patient experienced a dull aching pain along the right lateral chest area. The pain is not pleuritic in nature. It's rather on and off without any known exacerbating or relieving factors. No trauma to the chest. No hemoptysis. No pleurisy. He has chronic exertional dyspnea. Morbidly obese with a BMI of 54.4. No history of travel. No recent surgeries. No history of any malignancy. The patient gives a previous history of a DVT in the left upper extremity that occurred after a hand surgery following a crush injury to his fingers. At that time the patient left upper extremity clot that was not an extensive that embolized to his chest and he was treated and [facility] and [place]. He was treated with warfarin for quite some time and subsequently the anticoagulation was discontinued. He came into the hospital and the patient underwent further workup a d-dimer was slightly elevated at 3.9, patient underwent a CT angiogram that was rather suboptimal study. There was no central pulmonary emboli. Possibility of a right lower lobe pulmonary embolism was entertained based on a questionable segmental filling defect. Diaphragms are quite elevated in the lung basilar atelectatic and the patient has a small left-sided pleural effusion. The patient is currently on IV heparin. The patient also has a CAT scan of the abdomen that showed a right lower lobe infiltrate/effusion along with diverticulosis. The patient also had a troponin that was negative. UA was negative. COVID 19 testing was also negative. On today's evaluation of 02/04/2021, the patient is being seen for a follow-up. He is still having some nonspecific body aches and chest discomfort. I'm not sure this is related to pulmonary embolism. I reviewed the CAT scan of the chest. There may be a pulmonary embolism in the right lower lobe pulmonary artery branch. Nevertheless, I'm not absolutely sure knowing that the patient d-dimer was mildly elevated and the Doppler lower extremity came back negative and echocardiogram also showed a preserved LV function with an ejection fraction of 55-60%. He is currently holding her pulse ox of 94%. He was able to bring in his VPAP machine from home and the patient has a VPAP auto minimum pressure of 12 cm of water and maximum pressure 22 and a pressure support of 3. His been extremely compliant to his treatment is been successful while utilizing a full face mask. He remains on IV heparin for now. 02/05/2021, the patient's chest pain has subsided. He has no specific complaints. Continues to use his BiPAP overnight. He remains on IV heparin. IV heparin will be discontinued and the patient will be started on Eliquis and milligrams by mouth twice a day in regards to his pulmonary embolism. Hemodynamically stable. Echo of the heart was noted. The patient is a preserved LV function. No cervical pulmonary hypertension.. No bleeding complications. The patient is active and ambulating. The white cell count is at 9.5 with a hemoglobin of 11.8. Rest of the electrodes are all within normal limits. Objective - Vital Signs Vital signs: Vital Signs Temp 98.4 F 02/05/21 08:46 Pulse 55 L 02/05/21 12:00 Resp 18 02/05/21 12:00 BP 122/55 02/05/21 12:00 Pulse Ox 94 L 02/05/21 12:00 Intake & Output 02/04/21 02/05/21 02/05/21 18:59 06:59 18:59 Intake Total 1970 466.62 118 Output Total 350 250 250 Balance 1620 216.62 -132 Intake: Intake, IV Titration 1000 466.62 Amount Heparin Sod,Pork in 0.45% 250 466.62 NaCl 25,000 unit In 0.45 % NaCl 1 250ml.bag @ 11. 66 UNITS/KG/HR 23.007 mls /hr IV .[id number] [facility] Rx#: [id number] Sodium Chloride 0.9% 1, 750 000 ml @ 75 mls/hr IV . [id number] [facility] Rx#:[id number] Oral 970 118 Output: Urine 350 250 250 Stool 0 0 Urine/Stool Mix 0 Other: # Voids 0 # Bowel Movements 0 - Exam General appearance: alert, in no apparent distress, obese (Morbidly), and BMI of 54.4 Head exam: Present: atraumatic, normocephalic, normal inspection Eye exam: Present: normal appearance, PERRL, EOMI. Absent: scleral icterus, conjunctival injection, periorbital swelling ENT exam: Present: normal exam, mucous membranes moist Neck exam: Present: normal inspection Respiratory exam: Present: normal lung sounds bilaterally. Absent: respiratory distress, wheezes, rales, rhonchi, stridor Cardiovascular Exam: Present: regular rate, normal rhythm, normal heart sounds. Absent: systolic murmur, diastolic murmur, rubs, gallop, clicks GI/Abdominal exam: Present: soft, normal bowel sounds. Absent: distended, tenderness, guarding, rebound, rigid Extremities exam: Present: normal inspection, full ROM, normal capillary refill. Absent: tenderness, pedal edema, joint swelling, calf tenderness Neurological exam: Present: alert, oriented X3 Psychiatric exam: Present: normal affect, normal mood Skin exam: Present: warm, dry, intact, normal color. Absent: rash - Labs CBC & Chem 7: 02/05/21 06:00 02/05/21 06:00 Labs: Abnormal Lab Results - Last 24 Hours (Table) 02/04/21 02/04/21 02/04/21 Range/Units 15:11 16:43 20:13 RBC (4.30-5.90) m/uL Hgb (13.0-17.5) gm/dL Hct (39.0-53.0) % APTT 33.7 H (22.0-30.0) sec Glucose (74-99) mg/dL POC Glucose (mg/dL) 102 H 123 H (75-99) mg/dL 02/05/21 02/05/21 02/05/21 Range/Units 00:03 06:00 06:00 RBC 3.69 L (4.30-5.90) m/uL Hgb 11.8 L (13.0-17.5) gm/dL Hct 35.6 L (39.0-53.0) % APTT 54.7 H (22.0-30.0) sec Glucose 135 H (74-99) mg/dL POC Glucose (mg/dL) (75-99) mg/dL 02/05/21 02/05/21 02/05/21 Range/Units 06:00 06:52 11:28 RBC (4.30-5.90) m/uL Hgb (13.0-17.5) gm/dL Hct (39.0-53.0) % APTT 63.0 H (22.0-30.0) sec Glucose (74-99) mg/dL POC Glucose (mg/dL) 125 H 134 H (75-99) mg/dL Assessment and Plan Plan: 1 acute chest pain, suspicious for a pulmonary embolism. Patient has a previous history of DVT of left lower extremity and pulmonary embolism back in the s. Treated with anticoagulation. Patient is coming in with a nonspecific chest pain. Nevertheless, there is a filling defect in the right lower lobe pulmonary artery branch along with some small effusion. No other alternative isolation for his pain. He is at a high risk of having DVT and pulmonary embolism based on his morbid obesity and a rather sedentary lifestyle. Dopplers of the lower extremities were negative. The patient d-dimer was low at 3.9. The patient had an echocardiac Sly showing no significant pulmonary hypertension or RV dysfunction. Preserved LV function. clinically the patient is doing well the chest pain has subsided. Oxidation is also back to normal. 2 previous history of a left upper extremity DVT and pulmonary embolism back in the 90s, 3 morbid obesity with BMI 54 4 obstructive sleep apnea 5 hypertension 6 hyperlipidemia Plan Repeat chest x-ray and it showed no evidence of any acute cardio pulmonary process. Currently on room air oxygen, the patient's is quite comfortable and the patient's history of any chest pain. Stop the IV heparin and put the patient Eliquis 10 mg by mouth twice a day Allow the patient utilizes home BiPAP machine and machine was checked and the settings are adequate and the patient is being successfully treated We will likely need long-term anticoagulation regarding the possibility of recurrent pulmonary embolism. This was explained to the patient the patient can be potentially get discharged home today. The medical team will be informed.
[2021-02-05 16:41] LABS: Glucose,Whole Blood 145 mg/dL (75-99)
[2021-02-05] MEDS: MELATONIN 5 MG TABLET PO SCH (20:30)
[2021-02-05] MEDS: ATORVASTATIN 20 MG TAB PO SCH (20:30)
[2021-02-05 20:49] LABS: Glucose,Whole Blood 113 mg/dL (75-99)
[2021-02-06 00:26] VITALS: RESP 18
[2021-02-06 06:34] LABS: Glucose,Whole Blood 135 mg/dL (75-99)
[2021-02-06] MEDS: APIXABAN 5 MG TAB PO SCH (07:58)
[2021-02-06] MEDS: METOPROLOL TARTRATE 25 MG TAB PO SCH (07:59)
[2021-02-06] MEDS: ASPIRIN 81 MG PO SCH (07:59)
[2021-02-06] MEDS: GABAPENTIN 300 MG CAP PO SCH (07:59)
[2021-02-06] MEDS: CHOLECALCIFEROL 25 MCG (1000 IU) TABLET PO SCH (07:59)
[2021-02-06] MEDS: FAMOTIDINE 20 MG TAB PO SCH (07:59)
[2021-02-06 08:02] VITALS: BP 125/75; PULSE 62; TEMP 98
[2021-02-06] MEDS ORDERED: APIXABAN 5 MG TAB PO ONE (12:45)
--- NOTE | 2021-02-06 15:16 | P.PN ---
Subjective Progress Note Date: 02/06/21 Morbidly obese 60-year-old male patient presented to the hospital because of pain in the right subscapular area. Initially the pain was in the left approximately a week ago and later on the patient experienced a dull aching pain along the right lateral chest area. The pain is not pleuritic in nature. It's rather on and off without any known exacerbating or relieving factors. No trauma to the chest. No hemoptysis. No pleurisy. He has chronic exertional dyspnea. Morbidly obese with a BMI of 54.4. No history of travel. No recent surgeries. No history of any malignancy. The patient gives a previous history of a DVT in the left upper extremity that occurred after a hand surgery following a crush injury to his fingers. At that time the patient left upper extremity clot that was not an extensive that embolized to his chest and he was treated and [facility] and [place]. He was treated with warfarin for quite some time and subsequently the anticoagulation was discontinued. He came into the hospital and the patient underwent further workup a d-dimer was slightly elevated at 3.9, patient underwent a CT angiogram that was rather suboptimal study. There was no central pulmonary emboli. Possibility of a right lower lobe pulmonary embolism was entertained based on a questionable segmental filling defect. Diaphragms are quite elevated in the lung basilar atelectatic and the patient has a small left-sided pleural effusion. The patient is currently on IV heparin. The patient also has a CAT scan of the abdomen that showed a right lower lobe infiltrate/effusion along with diverticulosis. The patient also had a troponin that was negative. UA was negative. COVID 19 testing was also negative. On today's evaluation of 02/04/2021, the patient is being seen for a follow-up. He is still having some nonspecific body aches and chest discomfort. I'm not sure this is related to pulmonary embolism. I reviewed the CAT scan of the chest. There may be a pulmonary embolism in the right lower lobe pulmonary artery branch. Nevertheless, I'm not absolutely sure knowing that the patient d-dimer was mildly elevated and the Doppler lower extremity came back negative and echocardiogram also showed a preserved LV function with an ejection fraction of 55-60%. He is currently holding her pulse ox of 94%. He was able to bring in his VPAP machine from home and the patient has a VPAP auto minimum pressure of 12 cm of water and maximum pressure 22 and a pressure support of 3. His been extremely compliant to his treatment is been successful while utilizing a full face mask. He remains on IV heparin for now. 02/05/2021, the patient's chest pain has subsided. He has no specific complaints. Continues to use his BiPAP overnight. He remains on IV heparin. IV heparin will be discontinued and the patient will be started on Eliquis and milligrams by mouth twice a day in regards to his pulmonary embolism. Hemodynamically stable. Echo of the heart was noted. The patient is a preserved LV function. No cervical pulmonary hypertension.. No bleeding complications. The patient is active and ambulating. The white cell count is at 9.5 with a hemoglobin of 11.8. Rest of the electrodes are all within normal limits. 02/06/2021, I'm seeing the patient for a follow-up. They extremely well. No chest pain. The patient will be discharged home today on Eliquis. The patient will also follow-up with me in the office regarding his obstructive sleep apnea and pulmonary embolism. No new complaint otherwise for now. The patient is free for discharge as the patient is currently on room air. No bleeding complication and is tolerating anticoagulation without any major difficulties. Echo was noted. Normal ejection fraction. Objective - Vital Signs Vital signs: Vital Signs Temp 98.0 F 02/06/21 08:02 Pulse 62 02/06/21 08:02 Resp 18 02/06/21 08:02 BP 125/75 02/06/21 08:02 Pulse Ox 95 02/06/21 08:02 Intake & Output 02/05/21 02/06/21 02/06/21 18:59 06:59 18:59 Intake Total 354 200 118 Output Total 250 350 500 Balance 104 -150 -382 Weight 208.2 kg Intake: Oral 354 200 118 Output: Urine 250 350 500 Stool 0 Other: # Voids 1 1 - Exam General appearance: alert, in no apparent distress, obese (Morbidly), and BMI of 54.4 Head exam: Present: atraumatic, normocephalic, normal inspection Eye exam: Present: normal appearance, PERRL, EOMI. Absent: scleral icterus, conjunctival injection, periorbital swelling ENT exam: Present: normal exam, mucous membranes moist Neck exam: Present: normal inspection Respiratory exam: Present: normal lung sounds bilaterally. Absent: respiratory distress, wheezes, rales, rhonchi, stridor Cardiovascular Exam: Present: regular rate, normal rhythm, normal heart sounds. Absent: systolic murmur, diastolic murmur, rubs, gallop, clicks GI/Abdominal exam: Present: soft, normal bowel sounds. Absent: distended, tenderness, guarding, rebound, rigid Extremities exam: Present: normal inspection, full ROM, normal capillary refill. Absent: tenderness, pedal edema, joint swelling, calf tenderness Neurological exam: Present: alert, oriented X3 Psychiatric exam: Present: normal affect, normal mood Skin exam: Present: warm, dry, intact, normal color. Absent: rash - Labs CBC & Chem 7: 02/05/21 06:00 02/05/21 06:00 Labs: Abnormal Lab Results - Last 24 Hours (Table) 02/05/21 02/05/21 02/06/21 Range/Units 16:39 20:44 06:23 POC Glucose (mg/dL) 145 H 113 H 135 H (75-99) mg/dL Assessment and Plan Plan: 1 acute chest pain, suspicious for a pulmonary embolism. Patient has a previous history of DVT of left lower extremity and pulmonary embolism back in the 90s. Treated with anticoagulation. Patient is coming in with a nonspecific chest pain. Nevertheless, there is a filling defect in the right lower lobe pulmonary artery branch along with some small effusion. No other alternative isolation for his pain. He is at a high risk of having DVT and pulmonary embolism based on his morbid obesity and a rather sedentary lifestyle. Dopplers of the lower extremities were negative. The patient d-dimer was low at 3.9. The patient is currently on Eliquis. The patient is doing well. The patient on room air oxygen. History of any chest pain. 2 previous history of a left upper extremity DVT and pulmonary embolism back in the 90s, 3 morbid obesity with BMI 54 4 obstructive sleep apnea 5 hypertension 6 hyperlipidemia Plan Discharge the patient home on Eliquis. Continue home BiPAP Follow-up with me in the office. This will be a long-term anticoagulation.
== END 2021-02-06 12:13 | disposition home or self-care (01) | DRG 176 ==
LOC: EC 10:37 → 3SCARD 15:35
PROVIDERS: ADMIT Internal Medicine; ATTEND Internal Medicine
DX: I26.99 Other pulmonary embolism without acute cor pulmonale (principal); E87.1 Hypo-osmolality and hyponatremia; Z68.43 Body mass index [BMI] 50.0-59.9, adult; J98.11 Atelectasis; R07.89 Other chest pain; Z20.822 Contact with and (suspected) exposure to COVID-19; E66.01 Morbid (severe) obesity due to excess calories; E78.5 Hyperlipidemia, unspecified; G47.33 Obstructive sleep apnea (adult) (pediatric); H50.52 Exophoria; I11.0 Hypertensive heart disease with heart failure; I50.9 Heart failure, unspecified; K57.90 Diverticulosis of intestine, part unspecified, without perforation or abscess without bleeding; Z79.82 Long term (current) use of aspirin; Z79.899 Other long term (current) drug therapy; Z86.711 Personal history of pulmonary embolism; Z86.718 Personal history of other venous thrombosis and embolism; Z87.891 Personal history of nicotine dependence
CPT/HCPCS: 36415; 71046; 71275; 74176; 80048; 80053; 81001; 82150; 83690; 84484; 85025; 85379; 85730; 87635; 93306; 93970; 96365; 96375; 99285

== ENCOUNTER → 2022-07-13 | Outpatient (CLI) | payer OTHER ==
[2022-07-13 16:59] LABS: African American GFR (CKD) >90 (>60 ml/min/1.73 sqM); Blood Urea Nitrogen 17 mg/dL (9-20); Non-African American GFR(CKD) >90 (>60 ml/min/1.73 sqM)
--- NOTE | 2022-07-14 09:01 | CT ---
EXAMINATION TYPE: CT abdomen pelvis w con DATE OF EXAM: 07/13/2022 COMPARISON: 06/08/2021 HISTORY: hx of renal mass CT DLP: 4570.10 mGycm Automated exposure control for dose reduction was used. CONTRAST: CT scan of the abdomen pelvis is performed with IV Contrast, patient injected with 100 mL of Isovue 3 00. FINDINGS- LUNG BASES- subsegmental changes involving the lung bases most scarring atelectasis LIVER/GB- liver reduced attenuation fatty change. No gallstones. PANCREAS- No gross abnormality is seen. SPLEEN- No gross abnormality is seen. ADRENALS- No gross abnormality is seen. KIDNEYS/BLADDER- Current study shows symmetric cortical medullary uptake and excretion without hydron ephrosis seen bilaterally. Some cortical thinning bilaterally redemonstrated. Stable roughly 1.1 cm mostly exophytic lesion posteriorly left kidney lower pole does not meet the cr iteria of a simple cyst. Measures 41 Hounsfield units. Additional 1.8 cm round low dense lesion laterally left kidney midpole level measures 40 Hounsfield u nits and 1.3 cm low dense lesion anteriorly lower pole right kidney measures 12 Hounsfield units stab le . BOWEL- retained fecal debris seen throughout the colon. Appendix normal. No evidence of obstruction. LYMPH NODES- No greater than 1cm abdominal or pelvic lymph nodes are appreciated. OSSEOUS STRUCTURES- Multilevel vacuum disc phenomenon with mild to moderate disc space narrowing L2- L3 through the L4-L5 levels. Facet arthropathy lower lumbar levels. Multilevel mild to moderate spurr ing in the thoracolumbar spine. Moderate axial joint space loss in both hips. OTHER- atherosclerotic change aorta IMPRESSION- 1. Right renal lesion lower pole measures 1.3 cm and 12 Hounsfield units compatible with benign cyst Bosniak classification 1. 2. The left-sided renal lesions measure approximately 40 Hounsfield units each which does not meet th e criteria of a simple cyst. Both demonstrates stable size relative to prior exam. However MRI is rec ommended to properly characterize the lesions and determinate Bosniak classification.
== END | disposition home or self-care (01) ==
LOC: RADCTMAIN 15:36
PROVIDERS: ATTEND Internal Medicine Hematology & Oncology
DX: D41.11 Neoplasm of uncertain behavior of right renal pelvis (principal); N28.89 Other specified disorders of kidney and ureter
CPT/HCPCS: 82565; 84520; 74177; 36415; Q9967